=== PATIENT | female | born 1995 | race American Indian/Alaskan Native ===

== ENCOUNTER 2016-11-29 14:59 | Emergency (ER) | payer SELFPAY ==
[2016-11-29 16:03] LABS: Anion Gap 19 mmol/L; BUN/Creatinine Ratio 13.33; Blood Urea Nitrogen 8 mg/dL (7-17); Calcium 9.1 mg/dL (8.4-10.2); Carbon Dioxide 23 mmol/L (22-30); Chloride 100.1 mmol/L (98-107); Glucose 90 mg/dL (65-100); Potassium 3.7 mmol/L (3.6-5.0); Sodium 138 mmol/L (137-145)
[2016-11-29 16:06] LABS: Hematocrit 30.9 % (30.3-42.9); Hemoglobin 9.4 gm/dl (10.1-14.3); Mean Corpuscular HGB Conc 31 % (30-34); Mean Corpuscular Volume 74 fl (79-97); Platelet Count 325 K/mm3 (140-440); Red Cell Distribution Width 16.6 % (13.2-15.2); White Blood Count 4.6 K/mm3 (4.5-11.0)
[2016-11-29 16:12] LABS: Mean Corpuscular Hemoglobin 22 pg (28-32)
[2016-11-29 17:44] LABS: Bacteria,Urine 1+ /HPF (Negative); Bilirubin,Urine NEG (Negative); Blood,Urine NEG (Negative); Ketones,Urine NEG (Negative); Leukocyte Esterase,Urine SM (Negative); Mucus,Urine 3+ /HPF; Nitrite,Urine POS (Negative); Protein,Urine <15 mg/dL mg/dL (Negative); Urobilinogen,Urine < 2.0 mg/dL (<2.0)
[2016-11-30] MEDS ORDERED: MOTRIN PO ONE (03:49)
--- NOTE | 2016-11-30 03:50 | Emergency Department Report ---
ED General Adult HPI - General Chief complaint: Abdominal Pain Stated complaint: Flank Pain Time Seen by Provider: 11/30/16 03:14 Source: patient, RN notes reviewed Mode of arrival: Ambulatory Limitations: No Limitations - History of Present Illness Initial comments: This is a 21-year-old female. She is previously unknown to me. The patient presents to the ER complaining of bilateral lower quadrant pain that radiates to her back for 2 months. The pain radiates up to her neck. It also radiates up to her chest. There is no leg pain. There is no leg swelling. No recent trips greater than 4 hours. No recent hospital admissions. Patient also describes some dysuria. She also describes vaginal discharge. There is no headache, neck pain, diaphoresis. Patient denies fevers. The pain has no exacerbating or relieving factors. -: Gradual, week(s), month(s) Location: chest, abdomen, pelvis Radiation: back, flank Quality: aching Consistency: intermittent Improves with: none Worsens with: none Associated Symptoms: chest pain. denies: confusion, cough, diaphoresis, fever/ chills, headaches, loss of appetite, malaise, nausea/vomiting, shortness of breath, syncope, weakness - Related Data Previous Rx's Medication Instructions Recorded Last Taken Type Pnv with Ca,No.72/Iron/FA 1 each PO DAILY #30 tablet 11/29/14 06/13/16 Rx [ Vitamin with Low Iron] Nitrofurantoin Isabela/M-Cryst 100 mg PO Q12HR #20 capsule 11/21/15 Unknown Rx [Macrobid CAP] Ibuprofen [Motrin] 600 mg PO Q8H PRN #30 tablet 11/30/16 Unknown Rx Nitrofurantoin Isabela/M-Cryst 100 mg PO Q12HR #14 capsule 11/30/16 Unknown Rx [Macrobid CAP] Allergies Allergy/AdvReac Type Severity Reaction Status Date / Time No Known Allergies Allergy Verified 07/30/13 17:24 ED Review of Systems ROS: Stated complaint: Flank Pain Other details as noted in HPI Constitutional: denies: diaphoresis, fever, malaise ENT: denies: epistaxis Respiratory: denies: shortness of breath Cardiovascular: chest pain Gastrointestinal: abdominal pain Genitourinary: as per HPI, dysuria, discharge Musculoskeletal: back pain Skin: denies: lesions Neurological: weakness Psychiatric: as per HPI ED Past Medical Hx - Past Medical History Hx Hypertension: No Hx Congestive Heart Failure: No Hx Diabetes: No Hx Deep Vein Thrombosis: No Hx Renal Disease: No Hx Sickle Cell Disease: No Hx Seizures: No Hx Asthma: Yes Hx COPD: No Hx HIV: No - Social History Smoking Status: Never Smoker Substance Use Type: None - Medications Home Medications: Home Medications Medication Instructions Recorded Confirmed Last Taken Type Pnv with Ca,No.72/Iron/FA 1 each PO DAILY #30 tablet 11/29/14 06/30/16 06/13/16 Rx [ Vitamin with Low Iron] Nitrofurantoin Isabela/M-Cryst 100 mg PO Q12HR #20 capsule 11/21/15 06/30/16 Unknown Rx [Macrobid CAP] Ibuprofen [Motrin] 600 mg PO Q8H PRN #30 tablet 11/30/16 Unknown Rx Nitrofurantoin Isabela/M-Cryst 100 mg PO Q12HR #14 capsule 11/30/16 Unknown Rx [Macrobid CAP] ED Physical Exam - General Limitations: No Limitations General appearance: alert, in no apparent distress - Head Head exam: Present: atraumatic, normocephalic - Eye Eye exam: Present: normal appearance, EOMI. Absent: nystagmus - ENT ENT exam: Present: normal exam, normal orophraynx, mucous membranes moist, normal external ear exam - Neck Neck exam: Present: normal inspection, full ROM. Absent: tenderness, meningismus - Respiratory Respiratory exam: Present: normal lung sounds bilaterally. Absent: respiratory distress, wheezes, rales, rhonchi, stridor, chest wall tenderness, accessory muscle use, decreased breath sounds, prolonged expiratory - Cardiovascular Cardiovascular Exam: Present: regular rate, normal rhythm, normal heart sounds. Absent: bradycardia, tachycardia, irregular rhythm, systolic murmur, diastolic murmur, rubs, gallop - GI/Abdominal GI/Abdominal exam: Present: soft, normal bowel sounds. Absent: distended, tenderness, guarding, rebound, rigid, pulsatile mass - External exam: Present: normal external exam Speculum exam: Present: normal speculum exam Bi-manual exam: Present: normal bi-manual exam, other (escorted by DANIELLA PALMA). Absent: cervical motion tendernes, adnexal tenderness, adnexal mass - Extremities Exam Extremities exam: Present: normal inspection, full ROM, normal capillary refill. Absent: tenderness, pedal edema, joint swelling, calf tenderness - Back Exam Back exam: Present: normal inspection, full ROM. Absent: tenderness, CVA tenderness (R), CVA tenderness (L), muscle spasm, paraspinal tenderness, vertebral tenderness - Neurological Exam Neurological exam: Present: alert, oriented X3, normal gait, other (Extraocular movements intact. Tongue midline. No facial droop. Facial sensation intact to light touch in the V1, V2, V3 distribution bilaterally. 5 and 5 strength in 4 extremities.. Sensation is intact to light touch in 4 extremities.). Absent : motor sensory deficit - Psychiatric Psychiatric exam: Present: normal affect, normal mood - Skin Skin exam: Present: warm, dry, intact, normal color. Absent: rash ED Course Vital Signs 11/29/16 11/30/16 15:17 04:32 Temperature 98.3 F Pulse Rate 81 74 Respiratory 18 17 Rate Blood Pressure 118/72 Blood Pressure 124/80 [Left] O2 Sat by Pulse 100 99 Oximetry - Reevaluation(s) Reevaluation #1: 11/30/16 04:10 Differential diagnosis: Vaginitis, musculoskeletal pain, pelvic inflammatory disease, urinary tract infection, pneumonia, costochondritis Assessment and plan: 21-year-old female with multiple complaints. She is afebrile with reassuring vital signs. Low risk by MCKAYLA score, low risk by heart score, no pulmonary embolus or DVT risk factors, perc negative, low risk by well's criteria. EKG is morphologically unremarkable. Symptoms have been present for months and weeks. Patient with some nonspecific urinary symptoms and vaginitis. Urinalysis is noted to be nitrite positive. Gynecologic examination is pending. Patient is given pain medication. Abdomen is soft and benign, with no rebound, guarding or peritoneal signs. Based on her history and physical, I don't think the patient requires emergent imaging at this time. 11/30/16 04:10 Reevaluation #2: 11/30/16 04:58 Gynecologic examination is benign. EKG benign. Repeat physical exam unremarkable. Patient will be discharged with ibuprofen and Macrobid. Given benign pelvic examination, clinically doubt PID ED Medical Decision Making - Lab Data Result diagrams: 11/29/16 15:33 06/05/17 15:33 Vital Signs 11/29/16 15:17 Temperature 98.3 F Pulse Rate 81 Respiratory 18 Rate Blood Pressure 118/72 O2 Sat by Pulse 100 Oximetry Lab Results 11/29/16 11/29/16 11/29/16 Range/Units 15:33 15:33 17:02 WBC 4.6 (4.5-11.0) K/mm3 RBC 4.20 (3.65-5.03) M/mm3 Hgb 9.4 L (10.1-14.3) gm/dl Hct 30.9 (30.3-42.9) % MCV 74 L (79-97) fl MCH 22 L (28-32) pg MCHC 31 (30-34) % RDW 16.6 H (13.2-15.2) % Plt Count 325 (140-440) K/mm3 Sodium 138 (137-145) mmol/L Potassium 3.7 (3.6-5.0) mmol/L Chloride 100.1 (98-107) mmol/L Carbon Dioxide 23 (22-30) mmol/L Anion Gap 19 mmol/L BUN 8 (7-17) mg/dL Creatinine 0.6 L (0.7-1.2) mg/dL Estimated GFR > 60 ml/min BUN/Creatinine Ratio 13.33 % Glucose 90 (65-100) mg/dL Calcium 9.1 (8.4-10.2) mg/dL Urine Color Yellow (Yellow) Urine Turbidity Clear (Clear) Urine pH 6.0 (5.0-7.0) Ur Specific [place] 1.018 (1.003-1.030) Urine Protein <15 mg/dl (Negative) mg/dL Urine Glucose (UA) Neg (Negative) mg/dL Urine Ketones Neg (Negative) mg/dL Urine Blood Neg (Negative) Urine Nitrite Pos (Negative) Urine Bilirubin Neg (Negative) Urine Urobilinogen < 2.0 (<2.0) mg/dL Ur Leukocyte Esterase Sm (Negative) Urine WBC (Auto) 1.0 (0.0-6.0) /HPF Urine RBC (Auto) 2.0 (0.0-6.0) /HPF U Epithel Cells (Auto) 2.0 (0-13.0) /HPF Urine Bacteria (Auto) 1+ (Negative) /HPF Urine Mucus 3+ /HPF Urine HCG, Qual Negative (Negative) - EKG Data -: EKG Interpreted by Me EKG shows normal: sinus rhythm, axis, intervals, QRS complexes, ST-T waves - EKG Data When compared to previous EKG there are: previous EKG unavailable - Radiology Data Radiology results: image reviewed interpreted by me: X-ray of the chest is unremarkable. Critical care attestation.: If time is entered above; I have spent that time in minutes in the direct care of this critically ill patient, excluding procedure time. ED Disposition Clinical Impression: Pelvic pain Disposition: DISCHARGED TO HOME OR SELFCARE Is pt being admited?: No Does the pt Need Aspirin: No Condition: Stable Instructions: Urinary Tract Infection in Women (ED) Additional Instructions: Cultures were sent today. Results will be available next 3-5 days. Have a primary care doctor contact the medical records department to obtain culture results. Take the antibiotics, pain medication as directed. Follow-up with the primary care physician within the next 7-10 days. Return to the ER right away with new pain, worsened pain, migration of pain, fevers, chills, shortness of breath, intractable nausea or vomiting, confusion, inability to tolerate liquids. Referrals: PRIMARY CARE, [Primary Care Provider] - 3-5 Days EDITH GOETZ MD [Staff Physician] - 3-5 Days [facility] [Provider Group] - 3-5 Days [facility] [Provider Group] - 3-5 Days
[2016-11-30 04:32] VITALS: BP 124/80
--- NOTE | 2016-11-30 07:06 | XRay Report ---
Single view chest: History: Chest pain. Findings: Normal cardiomediastinal silhouette. Trachea is midline. No consolidation, pneumothorax or pleural effusion. Impression: No acute cardiopulmonary findings.
== END 2016-11-30 05:45 | disposition home or self-care (01) ==
LOC: ED 14:59
DX: R10.2 Pelvic and perineal pain (principal)
CPT/HCPCS: 36415; 71010; 80048; 81001; 81025; 85027; 87076; 87086; 87186; 87210; 87591; 93005; 93010; 99284

== ENCOUNTER 2017-07-18 16:03 | Emergency (ER) | payer SELFPAY ==
[2017-07-18 17:11] VITALS: BP 112/68
[2017-07-18 17:51] LABS: Basophils % (Auto) 0.5 % (0.0-1.8); Eosinophils % (Auto) 0.4 % (0.0-4.3); Hematocrit 28.3 % (30.3-42.9); Hemoglobin 8.9 gm/dl (10.1-14.3); Lymphocytes # (Auto) 2.1 K/mm3 (1.2-5.4); Lymphocytes % (Auto) 22.2 % (13.4-35.0); Mean Corpuscular HGB Conc 31 % (30-34); Mean Corpuscular Volume 73 fl (79-97); Monocytes # (Auto) 0.8 K/mm3 (0.0-0.8); Monocytes % (Auto) 8.6 % (0.0-7.3); Platelet Count 402 K/mm3 (140-440); Red Blood Count 3.91 M/mm3 (3.65-5.03); Red Cell Distribution Width 17.4 % (13.2-15.2)
[2017-07-18 17:54] LABS: Mean Corpuscular Hemoglobin 23 pg (28-32)
[2017-07-18 18:20] LABS: Alanine Aminotransferase 8 units/L (7-56); Albumin 3.9 g/dL (3.9-5); BUN/Creatinine Ratio 15; Blood Urea Nitrogen 6 mg/dL (7-17); Hemolysis Index 0
[2017-07-18 18:44] LABS: Bilirubin,Urine NEG (Negative); Blood,Urine NEG (Negative); Color,Urine Yellow (Yellow); Mucus,Urine 3+ /HPF; Nitrite,Urine NEG (Negative); Protein,Urine <15 mg/dL mg/dL (Negative)
[2017-07-18 18:46] LABS: HCG Qualitative,Urine Positive (Negative)
== END 2017-07-19 01:44 | disposition left against medical advice (07) ==
LOC: ED 16:03
DX: R09.81 Nasal congestion (principal); Z53.21 Procedure and treatment not carried out due to patient leaving prior to being seen by health care provider
CPT/HCPCS: 36415; 80053; 81001; 81025; 85025

== ENCOUNTER 2017-08-23 21:22 | Outpatient (CLI) | payer SELFPAY ==
[2017-08-23 22:58] LABS: Hemoglobin 8.8 gm/dl (10.1-14.3); Mean Corpuscular HGB Conc 31 % (30-34); Mean Corpuscular Volume 72 fl (79-97); Platelet Count 386 K/mm3 (140-440); Red Blood Count 3.92 M/mm3 (3.65-5.03); Red Cell Distribution Width 16.3 % (13.2-15.2)
[2017-08-23 23:01] LABS: Mean Corpuscular Hemoglobin 23 pg (28-32)
[2017-08-23 23:17] LABS: Alanine Aminotransferase 9 units/L (7-56); Albumin 3.9 g/dL (3.9-5); BUN/Creatinine Ratio 20; Blood Urea Nitrogen 8 mg/dL (7-17); Hemolysis Index 2
[2017-08-24 00:46] VITALS: BP 116/63
[2017-08-24] MEDS ORDERED: LACTATED RINGERS 500 ML IV SCH (01:00)
--- NOTE | 2017-08-24 01:01 | Ultrasound Report ---
FINAL REPORT PROCEDURE: US OB > = 14 WEEKS FETUS TECHNIQUE: Real-time transabdominal sonography of the uterus, placenta, amniotic fluid, adnexa, and fetus was performed with image documentation. Measurements were obtained to determine age/size. M-mode Doppler was used to document heartbeat. CPT 56853 HISTORY: > 20WEEKS WITH PELVIC PAIN AND VAGINAL DRAINAGE COMPARISON: No prior studies are available for comparison. FINDINGS: ADDITIONAL GESTATION: None. GENERAL: IUP: Single living intrauterine . Position: Cephalic Placental position: Anterior, without previa. Amniotic fluid volume: Normal. MATERNAL: Uterus: Within normal limits. Cervical length: 3.2 cm. Internal Os: Closed. FETUS: Heart rate and rhythm: 166 beats per minute anatomic survey: Normal. Limited evaluation of the spine and the cord insertion. MEASUREMENTS: BPD: 6.64 centimeters correspond to 26 weeks and 5 days HC: 24.4 centimeters correspond to 26 weeks and 3 days AC: 19.8 centimeters correspond to 24 weeks and 3 days FL: 4.75 centimeters corresponding to 25 weeks and 6 days Mean Gestational Age (composite criteria): 25 weeks and 6 days Ratio biometry: Normal. Estimated Weight: 792 grams. Interval growth: Appropriate. Estimated Due Date (earliest scan): 11/30/2017 IMPRESSION: Single intrauterine gestation at 25 weeks and 6 days. Estimated due date: 11/30/2017. Normal survey with appropriate growth.
== END 2017-08-24 01:45 | disposition home or self-care (01) ==
LOC: TRG 08-24 00:22
PROVIDERS: ATTEND Obstetrics & Gynecology
DX: O26.892 Other specified pregnancy related conditions, second trimester (principal); R10.2 Pelvic and perineal pain; Z3A.26 26 weeks gestation of pregnancy
CPT/HCPCS: 36415; 76805; 80053; 84702; 85027; 86900; 86901

== ENCOUNTER 2017-10-15 19:08 | Outpatient (CLI) | payer MEDICAID ==
[2017-10-15 19:57] LABS: Bilirubin,Urine NEG (Negative); Blood,Urine NEG (Negative); Color,Urine Yellow (Yellow); Mucus,Urine FEW /HPF; Protein,Urine <15 mg/dL mg/dL (Negative); WBC,Urine < 1.0 /HPF (0.0-6.0)
[2017-10-15] MEDS ORDERED: LACTATED RINGERS 1,000 ML IV ONE (20:00)
[2017-10-15 20:34] VITALS: BP 100/56
== END 2017-10-15 22:29 | disposition home or self-care (01) ==
LOC: TRG 19:08 → LD 19:10 → TRG 22:29
PROVIDERS: ATTEND Obstetrics & Gynecology
DX: O47.03 False labor before 37 completed weeks of gestation, third trimester (principal); Z3A.33 33 weeks gestation of pregnancy
CPT/HCPCS: 59025; 81001; 96360; J7120

== ENCOUNTER 2017-10-30 11:02 | Outpatient (CLI) | payer MEDICAID ==
[2017-10-30 11:23] VITALS: BP 119/68
== END 2017-10-30 12:35 | disposition home or self-care (01) ==
LOC: TRG 11:02
PROVIDERS: ATTEND Obstetrics & Gynecology
DX: O47.03 False labor before 37 completed weeks of gestation, third trimester (principal); Z3A.35 35 weeks gestation of pregnancy

== ENCOUNTER 2017-11-04 16:05 | Outpatient (CLI) | payer MEDICAID ==
[2017-11-04 17:20] VITALS: BP 117/68
== END 2017-11-04 18:30 | disposition home or self-care (01) ==
LOC: TRG 16:05
PROVIDERS: ATTEND Obstetrics & Gynecology
DX: O62.9 Abnormality of forces of labor, unspecified (principal); Z3A.36 36 weeks gestation of pregnancy
CPT/HCPCS: 59025

== ENCOUNTER 2017-11-08 00:47 | Inpatient (IN) | payer MEDICAID ==
[2017-11-08] MEDS ORDERED: LACTATED RINGERS 1,000 ML ONE (01:46)
[2017-11-08] MEDS ORDERED: PITOCin/NS 20 UNIT/1000ML DRIP 20,000 MILLIUNITS/1,000 ML BAG IV ONE (02:09)
[2017-11-08] MEDS ORDERED: REGLAN ONE (02:09)
[2017-11-08] MEDS ORDERED: PEPCID IV ONE (02:09)
[2017-11-08] MEDS ORDERED: BICITRA ONE (02:09)
[2017-11-08] MEDS ORDERED: ANCEF/STERILE WATER 2 GM/20 ML 2 GM/20 ML SYRINGE IV ONE (02:09)
[2017-11-08] MEDS ORDERED: WATER FOR IRRIG STERILE IR ONE (02:20)
[2017-11-08] MEDS ORDERED: NACL 0.9% IR ONE (02:20)
[2017-11-08] MEDS ORDERED: NEO SYNEPHRINE/NS Syringe(OR USE) IV ONE ×3 (02:26→03:10)
[2017-11-08] MEDS ORDERED: DIPRIVAN 10 MG/ML IV ONE ×2 (02:26→02:46)
[2017-11-08] MEDS ORDERED: QUELICIN ONE (02:27)
[2017-11-08 02:30] LABS: Hematocrit 21.9 % (30.3-42.9); Hemoglobin 6.6 gm/dl (10.1-14.3); Mean Corpuscular HGB Conc 30 % (30-34); Platelet Count 307 K/mm3 (140-440); Red Blood Count 3.35 M/mm3 (3.65-5.03); Red Cell Distribution Width 16.8 % (13.2-15.2)
[2017-11-08 02:32] LABS: Mean Corpuscular Hemoglobin 20 pg (28-32); Mean Corpuscular Volume 66 fl (79-97)
[2017-11-08] MEDS ORDERED: DILAUDID ONE (02:44)
[2017-11-08] MEDS ORDERED: ZOFRAN ONE (03:24)
--- NOTE | 2017-11-08 03:40 | Anesthesia Consultation ---
Anesthesia Consult and Med Hx Date of service: 11/08/17 - Airway Anesthetic Teeth Evaluation: Good ROM Head & Neck: Adequate Mental/Hyoid Distance: Adequate Mallampati Class: Class II Intubation Access Assessment: Probably Good - Pulmonary Exam CTA: Yes - Cardiac Exam Cardiac Exam: RRR - Pre-Operative Health Status ASA Pre-Surgery Classification: ASA2, Emergency Proposed Anesthetic Plan: General - Pulmonary Hx Smoking: No Hx Asthma: No COPD: No Hx Pneumonia: No - Cardiovascular System Hx Hypertension: No - Central Nervous System Hx Seizures: No Hx Psychiatric Problems: No - Endocrine Hx Renal Disease: No Hx End Stage Renal Disease: No Hx Hypothyroidism: No Hx Hyperthyroidism: No - Hematic Hx Anemia: No Hx Sickle Cell Disease: No - Other Systems Hx Alcohol Use: No
--- NOTE | 2017-11-08 03:40 | Anesthesia Day of Surgery ---
Anesthesia Day of Surgery - Day of Surgery Patient Examined: Yes Patient H&P Reviewed: Yes Patient is NPO: No
[2017-11-08] MEDS ORDERED: PHENERGAN PR PRN (03:41)
[2017-11-08] MEDS ORDERED: NARCAN 0.4 MG/1 ML IV PRN ×3 (03:41→05:52)
[2017-11-08] MEDS ORDERED: PHENERGAN PO PRN (03:41)
--- NOTE | 2017-11-08 03:41 | Post Anesthesia Evaluation ---
- Post Anesthesia Evaluation Patient Participated: Yes Airway Patent: Yes Stable Respiratory Function: Yes Nausea/Vomiting: No Temp > 96.8F: Yes Pain Manageable: Yes Adequeate Hydration: Yes Anesthesia Complications: No Block Receding Appropriately: Not Applicable Patient on Ventilator: No
[2017-11-08] MEDS ORDERED: TORADOL IV ONE (03:42)
[2017-11-08] MEDS ORDERED: DILAUDID IV PRN (03:42)
--- NOTE | 2017-11-08 03:48 | History and Physical Report ---
History of Present Illness Date of examination: 11/08/17 Date of admission: 11/08/17 01:47 Chief complaint: contractions, leakage of fluid History of present illness: Pt is a 22 year old -[place]aj[place] female PATRICIA 11/26/17 at 37w3d who presents with contractions and leakage of fluid. While in triage pt began to have large repetitive variable decelerations down to the 60s with slow return to baseline. Her cervix was 2-3 cm dilated. She denies vaginal bleeding. She has had care at [facility] since 29 wks complicated by late entry to care, trichomonas, gonorrhea and chlamydia with negative test of cure, genital herpes and anemia on iron thrice daily. She is GBS negative. Past History Past Medical History: asthma Past Surgical History: no surgical history [employer] History: chlamydia (negative test of cure ), gonorrhea (negative test of cure ), herpes, trichomonas (negative test of cure ) Family/Genetic History: none Social history: no significant social history - Obstetrical History Expected Date of Delivery: 11/26/17 Actual Gestation: 37 Week(s) 3 Day(s) : 4 Para: 2 Hx # Term Pregnancies: 2 Number of Pregnancies: 0 Spontaneous Abortions: 1 Induced : 0 Number of Living Children: 2 Medications and Allergies Allergies Allergy/AdvReac Type Severity Reaction Status Date / Time No Known Allergies Allergy Verified 07/30/13 17:24 Home Medications Medication Instructions Recorded Confirmed Last Taken Type No Known Home Medications [No 10/15/17 10/15/17 Unknown History Reported Home Medications] Review of Systems All systems: negative - Vital Signs Vital signs: Vital Signs Temp Pulse Resp BP 98.3 F 114 H 18 129/81 11/08/17 01:30 11/08/17 01:30 11/08/17 01:30 11/08/17 01:30 Temp Pulse Resp BP Pulse Ox 98.3 F 110 H 18 129/81 100 11/08/17 01:30 11/08/17 02:13 11/08/17 01:30 11/08/17 01:30 11/08/17 02:13 - Physical Exam Breasts: Positive: deferred Abdomen: Positive: soft Uterus: Positive: enlarged (gravid ) - Obstetrical FHR: category 2 Uterine Contraction Monitor Mode: External Cervical Dilatation: 2.5 Uterine Contraction Pattern: Irregular Uterine Tone Measurement Phase: Resting Uterine Contraction Intensity: Moderate Results Result Diagrams: 11/08/17 02:00 Abnormal lab results 11/08/17 11/08/17 11/08/17 Range/Units 02:00 03:20 03:23 WBC 12.4 H (4.5-11.0) K/mm3 RBC 3.35 L (3.65-5.03) M/mm3 Hgb 6.6 L (10.1-14.3) gm/dl Hct 21.9 L (30.3-42.9) % MCV 66 L (79-97) fl MCH 20 L (28-32) pg RDW 16.8 H (13.2-15.2) % POC ABG pH 7.226 L (7.35-7.45) POC ABG pCO2 29.5 L 47.2 H (35-45) POC ABG pO2 176 H 47 L (80-105) All other labs normal. Assessment and Plan A: IUP at 37w3d Category II tracing remote from delivery Insufficient care Asthma GBS negative P: Proceed with emergent primary section.
[2017-11-08] MEDS ORDERED: ZOFRAN IV PRN ×2 (03:56→05:52)
[2017-11-08] MEDS ORDERED: BENADRYL IV PRN (03:56)
--- NOTE | 2017-11-08 03:57 | Operative Report ---
Operative Report Operative Report: Date of procedure: November 08, 2017 Preoperative diagnosis: 1) IUP at 37w3d 2) PROM 3) Bradycardia 4) Severe Anemia Postoperative diagnosis: Same Procedure: Emergent primary low transverse section Surgeon: Esther Rivera M.D. Anesthesia: GETA Findings: 1) Viable female , Apgars 1, 6 and 9, weight 2721g in vertex presentation. Terminal meconium 2) Normal-appearing uterus, ovaries and tubes Estimated blood loss: 700 mL Drains: Thomas to gravity Specimens: Placenta to pathology Complications: None. Counts correct x 3 Disposition: Stable to PACU Indication for procedure: Pt is a 22 year old -[place] female at 37w3d who presents with rupture of membranes and painful contractions at 2 cm dilation. Upon arrival to the unit, the FHTs evidenced deep variable decels to the 60s and bradycardia for 4 minutes remote from delivery. The decision was made to proceed with emergent section. Operation in detail: After the risks, benefits, alternatives and complications were explained to the patient she gave informed consent for the procedure. She was subsequently taken to the operating room. An attempt was made to obtain spinal anesthesia which was unsuccessful. She was subsequently placed in the dorsal supine position with leftward tilt and prepped and draped in a normal sterile fashion. heart tones were noted to prior to incision with audible deceleration. A timeout was performed. General anesthesia was then induced and noted to be adequate. A Pfannenstiel skin incision was made with the knife and carried down to the layer of the fascia with the Bovie. The fascia was incised in the midline and the fascial incision was extended bilaterally with the Bovie. The fascial incision was stretched. The rectus muscles were then in the midline. The peritoneum was then entered bluntly and stretched. The bladder blade was placed. The vesicouterine peritoneum was grasped with smooth pickups, incised with Metzenbaum scissors and extended bilaterally. The bladder flap was then created digitally and the bladder blade was replaced. A transverse incision was made in the lower uterine segment with a knife and extended bilaterally with the bandage scissors. The head was delivered without difficulty followed by shoulders and body. was bulb suctioned at delivery. The cord was clamped and cut and the was handed to NICU staff in attendance. Cord blood was collected. A cord segment was collected. The uterus was then exteriorized and the placenta was then delivered manually. The uterus was then cleared of all clots and debris. The hysterotomy was then reapproximated with 0 Vicryl in a running locked fashion. A second layer of the same suture was used in imbricating fashion. The hysterotomy was inspected and hemostasis was noted. The gutters were irrigated and cleared of all clots and debris. The hysterotomy was again inspected and noted to be hemostatic. Surgicel was placed over the hysterotomy. The peritoneum was reapproximated with 2-0 Vicryl in a running fashion incorporating the rectus muscles. Surgicel was placed over the pyramidalis muscles for added hemostasis. The fascia was reapproximated with 0 Vicryl in a running fashion. The subcutaneous tissue was reapproximated with 3-0 Vicryl. The skin was reapproximated with 4-0 Vicryl in a subcuticular fashion. The incision was then covered with steri strips and a pressure dressing. The procedure was then ended. The patient tolerated the procedure well and was taken to the PACU in stable condition. All instrument, lap, and needle counts were correct 3.
--- NOTE | 2017-11-08 03:57 | Procedure Note ---
OB Delivery Note - Delivery Date of Delivery: 11/08/17 Surgeon: JEN SEPULVEDA Estimated blood loss: other (700 mL) - Section Preop diagnosis: nonreassuring FHR tracing Postop diagnosis: same section procedure: section, primary low transverse Disposition: PACU Complications: none Narrative: Please see operative report. - A at 1 minute: 1 at 5 minutes: 6 (Apgars 1,6, 9; weight 2721g) Infant Gender: Female
[2017-11-08] MEDS ORDERED: MORPHINE PCA 30MG/30ML IV SCH (04:00)
[2017-11-08] MEDS ORDERED: SODIUM CHLORIDE FLUSH SYRINGE 10 ML IV PRN ×2 (04:00→05:52)
[2017-11-08] MEDS ORDERED: LANSINOH TP PRN (05:52)
[2017-11-08] MEDS ORDERED: D5LR 1,000 ML IV SCH (05:52)
[2017-11-08] MEDS ORDERED: PITOCin/NS 20 UNIT/1000ML DRIP 20 UNITS/1,000 ML BAG IV SCH (05:52)
[2017-11-08] MEDS ORDERED: ANCEF/NS 1 GM/50 ML 1 GM/50 ML BAG IV SCH (05:52)
[2017-11-08] MEDS ORDERED: MILK OF MAGNESIA PO PRN (05:52)
[2017-11-08] MEDS ORDERED: TUCKS PAD TP PRN (05:52)
[2017-11-08] MEDS: ceFAZolin 1 GM in NACL 0.9% 20 ML IV SCH ×2 (09:54→17:44)
[2017-11-08] MEDS ORDERED: FEOSOL PO SCH (10:00)
[2017-11-08] MEDS: TORADOL IV PRN ×3 (10:42→23:25)
[2017-11-08] MEDS: ZOFRAN IV PRN (15:45)
[2017-11-08 18:01] LABS: Hematocrit 21.1 % (30.3-42.9); Hemoglobin 6.3 gm/dl (10.1-14.3)
[2017-11-08] MEDS ORDERED: NACL 0.9% 500 ML 500 ML IV ONE ×2 (18:21→18:36)
[2017-11-08] MEDS ORDERED: BENADRYL PO SCH (18:27)
[2017-11-08] MEDS ORDERED: TYLENOL PO SCH (18:28)
--- NOTE | 2017-11-08 18:55 | Event Note ---
Date: 11/08/17 Pt with symptomatic anemia (dizziness while ambulating). Plan to transfuse two units PRBCs with H/H four hours after transfusion of the second unit.
[2017-11-08] MEDS: PERCOCET 5/325 PO PRN (19:45)
[2017-11-08] MEDS ORDERED: COLACE PO PRN (22:05)
--- NOTE | 2017-11-08 22:08 | Event Note ---
Date: 11/08/17 Late Entry. Contacted by RN that patient has refused blood transfusion. Begin iron supplementation three times daily with stool softner as needed. Continue to monitor clinically.
[2017-11-09] MEDS: PERCOCET 5/325 PO PRN ×2 (02:58→12:19)
[2017-11-09] MEDS ORDERED: M-M-R II VACCINE SUB-Q ONE (04:03)
[2017-11-09] MEDS: TORADOL IV PRN (05:21)
[2017-11-09] MEDS ORDERED: BOOSTRIX IM ONE (06:00)
--- NOTE | 2017-11-09 08:48 | Progress Note ---
Assessment and Plan A/P POD2 s/p primary csec VSS anemia persists ( chronic 6.6 to 6.3 -patient finally agrees to blood transfusion will give 2 U reassess after blood transfusion has some questions for primary surgeon continue routine postop orders baby in [place] Subjective - Subjective Date of service: 11/09/17 Principal diagnosis: s/p primary csec Patient reports: appetite normal, voiding normally, pain well controlled [place]: in NICU Objective - Vital Signs Latest vital signs: Vital Signs Temp Pulse Resp BP BP Pulse Ox 11/09/17 04:00 98.7 F 66 16 117/78 11/09/17 00:00 98.6 F 87 18 102/64 11/08/17 19:45 98.7 F 66 18 113/65 11/08/17 16:43 98.1 F 113 H 20 111/65 99 11/08/17 16:00 18 11/08/17 11:36 98.5 F 101 H 20 111/59 97 11/08/17 10:00 18 Intake and Output 11/08/17 11/09/17 11/09/17 23:59 07:59 15:59 Intake Total 560 300 Output Total 900 500 Balance -340 -200 Intake: Oral 260 Intake, Free Water 300 300 Output: Urine 900 500 Void 900 500 Other: Total, Intake Amount 200 Total, Output Amount 300 200 # Voids Void 1 1 - Exam Breasts: Present: normal Cardiovascular: Present: Regular rate, Normal S1 Lungs: Present: Clear to auscultation, Normal air movement Abdomen: Present: normal appearance, soft, normal bowel sounds. Absent: distention, tenderness, guarding Vulva: both: normal Uterus: Present: normal, firm, fundal height below umbilicus. Absent: bogginess , tenderness Extremities: Present: normal Deep Tendon Reflex Grade: Normal +2 Incision: Present: normal, dressed - Labs Labs: Abnormal lab results 11/08/17 11/08/17 Range/Units 02:00 17:39 Hgb 6.3 L (10.1-14.3) gm/dl Hct 21.1 L (30.3-42.9) % Crossmatch See Detail
[2017-11-09] MEDS: FEOSOL PO SCH (09:19)
--- NOTE | 2017-11-09 12:52 | Event Note ---
Date: 11/09/17 I met with pt and a male present in her room at the time, along with her nurse today Arpita. Her male slitter processed film asked why the patient received "so much anesthesia." They were informed that the patient received general anesthesia per protocol. All questions from patient and her male slitter processed film answered and the pt expressed understanding. Plan to return this evening for further discussion with the remainder of the family in conjunction with NICU staff.
--- NOTE | 2017-11-09 17:48 | Event Note ---
Date: 11/09/17 Pt expressed desire for provider to speak with her grandmother who indicated that she would be at the hospital around 4 pm today. At 530 pm, she was still not at the hospital.
--- NOTE | 2017-11-09 18:17 | Event Note ---
Date: 11/09/[address] Rivera and Kay, NICU charge nurse and given opportunity to ask any additional questions. All questions answered. No additional family present at this time.
[2017-11-09] MEDS ORDERED: NACL 0.9% 500 ML 500 ML ONE ×2 (18:53→22:46)
[2017-11-09] MEDS ORDERED: GARAMYCIN 0 MG in NACL 0.9% 100 ML IV SCH (21:30)
[2017-11-09] MEDS ORDERED: TYLENOL ONE (21:31)
--- NOTE | 2017-11-09 21:51 | Event Note ---
Date: 11/09/17 I was contacted by Nurse Clementina indicated that patient had a temp of 103 down to 101 prior to blood. cxr, urine culture and blood cultures x2 ordered. I also ordered ampicillin, gentamycin and clindamycin. close observation of VS.
[2017-11-09] MEDS ORDERED: GARAMYCIN/NS 100 MG/100 ML 100 MG/100 ML BAG IV SCH (22:00)
[2017-11-09] MEDS ORDERED: CLEOCIN 900 MG/50 mL 900 MG/50 ML BAG IV SCH (22:00)
--- NOTE | 2017-11-09 23:02 | XRay Report ---
FINAL REPORT PROCEDURE: XR CHEST 1V AP TECHNIQUE: Chest radiograph anteroposterior view. CPT 61491 HISTORY: sepsis rule out COMPARISON: No prior studies are available for comparison. FINDINGS: Heart: Normal size. Mediastinum/Vessels: Normal. Lungs/Pleural space: There is patchy alveolar density in the left perihilar region extending into the left lower lobe suspicious for pneumonia. Minimal left effusion appears to be present. There also may be minimal right effusion. Right lung is otherwise clear.. Bony thorax: No acute osseous abnormality. Life support devices: None. IMPRESSION: Increased left perihilar density extending into the left lower lobe suspicious for pneumonia given the patient's clinical presentation. Possible minimal bilateral pleural effusions..
[2017-11-10] MEDS: POLYCILLIN/NS 2 GM/100 ML 2 GM/100 ML BAG IV SCH ×2 (00:08→04:19)
[2017-11-10] MEDS: MOTRIN PO PRN ×2 (00:17→22:53)
[2017-11-10] MEDS: PERCOCET 5/325 PO PRN ×2 (01:34→08:09)
[2017-11-10] MEDS ORDERED: LACTATED RINGERS 1,000 ML IV SCH (08:00)
[2017-11-10] MEDS: FEOSOL PO SCH ×2 (08:08→16:09)
[2017-11-10] MEDS: MYLICON PO PRN (08:08)
--- NOTE | 2017-11-10 08:08 | Progress Note ---
Assessment and Plan A/P POD3 s/p primary csec Esteban temp 103 Initially started triples, after cxr source likely pneumo left lower quadrant spoke with Dr. Mccullough of ID and requested change Abx to unasyn and azithro s/p blood transfusion 2U await post transfusion ordered special testing legionella and sputum culture and Dr. Mccullough to see patient tomorrow continue present mgt Subjective - Subjective Date of service: 11/10/17 Principal diagnosis: s/p primary csec, pneumonia Patient reports: appetite normal, voiding normally, pain well controlled, flatus , ambulating normally : in NICU Objective - Vital Signs Latest vital signs: Vital Signs Temp Pulse Resp BP BP Pulse Ox 11/10/17 04:15 98.7 F 59 L 18 122/79 11/10/17 03:00 98.6 F 11/10/17 01:35 99 F 126 H 116/58 95 11/09/17 23:50 102 F H 120 H 20 106/56 11/09/17 23:20 103 F H 123 H 20 115/55 11/09/17 22:50 97.9 F 133 H 18 123/68 11/09/17 22:20 99.8 F H 130 H 18 114/52 11/09/17 22:02 102 F H 134 H 20 118/64 11/09/17 21:50 102.9 F H 134 H 117/57 96 11/09/17 21:39 102.7 F H 139 H 18 114/59 11/09/17 21:20 103 F H 138 H 20 114/60 11/09/17 20:50 102 F H 134 H 20 118/64 11/09/17 20:30 101.2 F H 115 H 18 118/64 11/09/17 20:20 101.7 F H 130 H 18 122 H 11/09/17 19:50 103 F H 131 H 20 124/67 11/09/17 19:20 103 F H 136 H 20 134/63 11/09/17 19:04 133 H 20 102/49 11/09/17 16:24 98.4 F 116 H 20 105/60 11/09/17 09:15 97.5 F L 101 H 20 116/70 Intake and Output 11/09/17 11/10/17 11/10/17 23:59 07:59 15:59 Intake Total 360 100 Output Total 1450 Balance 360 -1350 Intake: IV 100 POLYCILLIN/NS 2 GM/100 ML 100 2 gm In 100 ml @ 100 mls /hr IV Q4HR [facility] Rx#: [id number] Oral 360 Blood Product 0 0 Leukoreduced Red Blood 0 0 Cells Unit [id number] Leukoreduced Red Blood 0 Cells Unit [id number] Output: Urine 1450 Void 1450 Other: Total, Intake Amount 120 Total, Output Amount 650 # Voids Void 1 - Exam Breasts: Present: normal Cardiovascular: Present: Regular rate, Normal S1 Lungs: Present: Normal air movement Abdomen: Present: normal appearance, soft, normal bowel sounds. Absent: distention, tenderness, guarding Vulva: both: normal Uterus: Present: normal, firm, fundal height below umbilicus. Absent: bogginess , tenderness Extremities: Present: normal Deep Tendon Reflex Grade: Normal +2 Incision: Present: normal, dry, intact - Labs Labs: Abnormal lab results 11/08/17 Range/Units 02:00 Crossmatch See Detail
[2017-11-10 08:23] LABS: Hematocrit 27.9 % (30.3-42.9); Hemoglobin 8.5 gm/dl (10.1-14.3); Mean Corpuscular HGB Conc 30 % (30-34); Mean Corpuscular Volume 71 fl (79-97); Platelet Count 297 K/mm3 (140-440); Red Blood Count 3.92 M/mm3 (3.65-5.03)
[2017-11-10 08:24] LABS: Mean Corpuscular Hemoglobin 22 pg (28-32)
[2017-11-10] MEDS: UNASYN/NS 3 GM/100 ML 3 GM/100 ML BAG IV SCH ×2 (08:47→16:00)
[2017-11-10 09:18] LABS: Band Neutrophils # (Manual) 2.6 K/mm3; Basophils % (Manual) 0 % (0.0-1.8); Eosinophils % (Manual) 0 % (0.0-4.3); Total Cells Counted 100
[2017-11-10 09:19] LABS: Anisocytosis 1+; Poikilocytosis 1+
[2017-11-10 09:20] LABS: Dimorphic RBC Yes; Hypochromasia 1+; Ovalocytes Few; Target Cells Few
[2017-11-10] MEDS: ZITHROMAX 500 MG in NACL 0.9% 250ML 250 ML IV SCH (10:37)
[2017-11-10 11:16] LABS: Alanine Aminotransferase 6 units/L (7-56); Albumin 2.2 g/dL (3.9-5); BUN/Creatinine Ratio 15; Blood Urea Nitrogen 6 mg/dL (7-17); Calcium 7.7 mg/dL (8.4-10.2); Hemolysis Index 0
--- NOTE | 2017-11-10 17:58 | Event Note ---
Date: 11/10/17 Late entry. On 11/10/17 around 2 PM, a meeting was convened including the patient , her grandmother, Dr Rivera (S[facility]), Dr Friend (NICU) and Alejandra Godinez from Risk Management to discuss the patient's care since she arrived at the hospital as well as the baby's treatment plan and progress. Both the patient and her family member were given an opportunity to ask questions. All questions answered and both parties expressed understanding.
[2017-11-10] MEDS ORDERED: KCL 20 MEQ in LACTATED RINGERS 1,000 ML IV SCH (21:00)
[2017-11-11] MEDS: UNASYN/NS 3 GM/100 ML 3 GM/100 ML BAG IV SCH ×4 (00:25→18:06)
[2017-11-11 07:34] LABS: Hematocrit 27.9 % (30.3-42.9); Hemoglobin 8.6 gm/dl (10.1-14.3); Mean Corpuscular HGB Conc 31 % (30-34); Mean Corpuscular Volume 72 fl (79-97); Platelet Count 339 K/mm3 (140-440); Red Blood Count 3.89 M/mm3 (3.65-5.03)
[2017-11-11 07:56] LABS: Mean Corpuscular Hemoglobin 22 pg (28-32); Red Cell Distribution Width 22.7 % (13.2-15.2)
--- NOTE | 2017-11-11 07:58 | Progress Note ---
Assessment and Plan A: POD#3 s/p emergent primary section Left lower lobe pneumonia on Unasyn and Azithromycin s/p ID consult today ; Report pending; last fever this morning Acute on chronic anemia s/p 2 units PRBCs Delayed return of bowel function GERD P: Initiate PPI Continue IV antibiotics until afebrile 24 hrs then transition to PO Bowel regimen Encourage ambulation Closely monitor clinical status Subjective - Subjective Date of service: 11/11/17 Principal diagnosis: s/p primary csec, pneumonia Interval history: Pt still feels rather weak today. She reports that she feels nauseated when she eats. Patient reports: appetite normal, voiding normally, pain well controlled, flatus , nauseated, no bowel movement [place]: in NICU Objective - Vital Signs Latest vital signs: Vital Signs Temp Pulse Resp BP BP Pulse Ox 11/11/17 02:10 97.4 F L 11/11/17 00:59 100.8 F H 116 H 16 140/83 11/10/17 16:24 97.6 F 96 H 18 124/78 100 11/10/17 09:03 97.7 F 81 18 97 11/10/17 08:00 97.7 F Intake and Output 11/10/17 11/11/17 11/11/17 22:59 06:59 14:59 Intake Total 340 220 Balance 340 220 Intake: IV 100 100 UNASYN/NS 3 GM/100 ML 3 100 100 gm In 100 ml @ 200 mls/hr IV Q6HR [facility] Rx#: [id number] Intake, Free Water 240 120 Other: # Voids Void 1 2 - Exam Breasts: Present: deferred Cardiovascular: Present: Regular rate Lungs: Present: Clear to auscultation Abdomen: Present: soft, distention (mild ), abnormal bowel sounds (hypoactive ) Uterus: Present: fundal height below umbilicus Extremities: Present: normal Incision: Present: intact - Labs Labs: Abnormal lab results 11/10/17 11/10/17 11/11/17 Range/Units 08:02 10:36 06:46 WBC 23.2 H 24.1 H (4.5-11.0) K/mm3 Hgb 8.5 L 8.6 L (10.1-14.3) gm/dl Hct 27.9 L D 27.9 L (30.3-42.9) % MCV 71 L 72 L (79-97) fl MCH 22 L 22 L (28-32) pg RDW 22.0 H 22.7 H (13.2-15.2) % Seg Neuts % (Manual) 82.0 H (40.0-70.0) % Lymphocytes % (Manual) 5.0 L (13.4-35.0) % Seg Neutrophils # Man 19.0 H (1.8-7.7) K/mm3 Potassium 3.0 L (3.6-5.0) mmol/L BUN 6 L (7-17) mg/dL Creatinine 0.4 L (0.7-1.2) mg/dL Calcium 7.7 L (8.4-10.2) mg/dL ALT 6 L (7-56) units/L Total Protein 4.6 L (6.3-8.2) g/dL Albumin 2.2 L (3.9-5) g/dL
[2017-11-11 08:13] LABS: BUN/Creatinine Ratio 12; Blood Urea Nitrogen 7 mg/dL (7-17); Calcium 8.5 mg/dL (8.4-10.2)
[2017-11-11 08:14] LABS: Alanine Aminotransferase 7 units/L (7-56); Albumin 2.5 g/dL (3.9-5); Hemolysis Index 8
--- NOTE | 2017-11-11 08:14 | Consultation ---
History of Present Illness - Reason for Consult Consult date: 11/11/17 pneumonia s/p Csection Requesting physician: JEN SEPULVEDA - History of Present Illness 22 y/o female admitted on 11/08/17 with 37 weeks due to uterine contractions and leakage of fluid. While in triage pt began to have large repetitive variable decelerations down to the 60s with slow return to baseline. Her cervix was 2-3 cm dilated. She denies vaginal bleeding. She had care at [facility] since 29 wks complicated by late entry to care, trichomonas, gonorrhea and chlamydia with negative test of cure, genital herpes and anemia on iron thrice daily. She is GBS negative. Patient underwent emergent C section on November 08, 2017 for PROM, bradycardia and Severe Anemia. Upon admission, initial temperature was 98.3, heart rate 114, respiration 18, blood pressure 129/81. White count 12.7. Hemoglobin 6.6. Platelets 307. PCO2 of 47. Creat 0.5. By 11/09/17 she developed a fever of 103 and tachycardia , WBC went to 23K. Chest x-ray showed left perihilar and left lower lobe densities. Microbiology: Blood cultures: 11/10 ngtd Urine cultures: Current Antimicrobials: Unasyn 11/10 Azithromycin 11/10 Previous Antimicrobials: Amp Clinda Gent Past History Past Medical History: other (trichomonas, gonohrrea, genital herpes) Social history: no significant social history Medications and Allergies Allergies Allergy/AdvReac Type Severity Reaction Status Date / Time No Known Allergies Allergy Verified 07/30/13 17:24 Home Medications Medication Instructions Recorded Confirmed Last Taken Type Docusate Sodium [Colace] 100 mg PO BID PRN #60 capsule 11/10/17 Unknown Rx Ferrous Sulfate [Feosol 325 MG tab] 325 mg PO TID #90 tablet 11/10/17 Unknown Rx Ibuprofen [Motrin] 800 mg PO Q8HR PRN #30 tablet 11/10/17 Unknown Rx oxyCODONE /ACETAMINOPHEN [Percocet 1 tab PO Q6HR PRN #40 tablet 11/10/17 Unknown Rx 5/325] Active Meds: Active Medications Docusate Sodium (Colace) 100 mg PO BID PRN PRN Reason: Constipation Ferrous Sulfate (Feosol) 325 mg PO TID [facility] Last Admin: 05/17/18 16:09 Dose: 325 mg Hydromorphone HCl (Dilaudid) 0.5 mg IV Q10MIN PRN PRN Reason: Pain , Severe (7-10) Oxytocin/Sodium Chloride (Pitocin/Ns 20 Unit/1000ml Drip) 20 units in 1,000 mls @ 250 mls/hr IV DIRECT [facility] Ampicillin Sodium/Sulbactam Sodium (Unasyn/Ns 3 Gm/100 Ml) 3 gm in 100 mls @ 200 mls/hr IV Q6HR [facility]; Protocol Last Admin: 11/11/17 06:39 Dose: 200 mls/hr Azithromycin 500 mg/ Sodium (Chloride) 250 mls @ 250 mls/hr IV Q24HR [facility] Last Admin: 11/10/17 10:37 Dose: 250 mls/hr Potassium Chloride 20 meq/ (Lactated Ringer's) 1,010 mls @ 100 mls/hr IV DIRECT [facility] Ibuprofen (Motrin) 800 mg PO Q6H PRN PRN Reason: Pain, Mild (1-3) Last Admin: 11/10/17 22:53 Dose: 800 mg Ketorolac Tromethamine (Toradol) 30 mg IV Q6H PRN PRN Reason: Pain, Moderate (4-6) Stop: 11/13/17 05:51 Last Admin: 11/09/17 05:21 Dose: 30 mg Magnesium Hydroxide (Milk Of Magnesia) 30 ml PO Q6H [facility] Multi-Ingredient Ointment (Lansinoh) 1 applic TP PRN PRN PRN Reason: dryness/cracking Naloxone HCl (Narcan 0.4 Mg/1 Ml) 0.2 mg IV Q2MIN PRN PRN Reason: Res Rate </= 8 or 02 SAT < 92% Naloxone HCl (Narcan 0.4 Mg/1 Ml) 0.1 mg IV Q2MIN PRN PRN Reason: Res Rate </= 8 or 02 SAT < 92% Ondansetron HCl (Zofran) 4 mg IV Q8H PRN PRN Reason: Nausea And Vomiting Last Admin: 11/08/17 15:45 Dose: 4 mg Oxycodone/Acetaminophen (Percocet 5/325) 2 tab PO Q4H PRN PRN Reason: Pain, Moderate (4-6) Last Admin: 11/10/17 08:09 Dose: 2 tab Pantoprazole Sodium (Protonix) 20 mg PO QDAY [facility] Promethazine HCl (Phenergan) 25 mg PO Q6H PRN PRN Reason: Nausea And Vomiting Promethazine HCl (Phenergan) 25 mg NV Q6H PRN PRN Reason: Nausea And Vomiting Simethicone (Mylicon) 80 mg PO Q6H PRN PRN Reason: Gas pain Last Admin: 11/10/17 08:08 Dose: 80 mg Sodium Chloride (Sodium Chloride Flush Syringe 10 Ml) 10 ml IV PRN PRN PRN Reason: LINE FLUSH Witch Jewels/Glycerin (Tucks Pad) 1 each TP PRN PRN PRN Reason: Hemorrhoids/cleansing/soothing Review of Systems All systems: negative (reports reflux and heartburn, rest ROS neg) Physical Examination - Physical Exam Narrative exam: General appearance: Alert in NAD, conversant Eyes: anicteric sclerae, moist conjunctivae; no lid-lag; PERRLA HENT: Atraumatic; oropharynx clear Neck: Trachea midline; supple, no thyromegaly or lymphadenopathy Lungs: CTA, with normal respiratory effort and no intercostal retractions CV: RRR, no murmurs Abdomen: Soft, uterine fundus, TTP, C section no erythema and no discharge Extremities: No peripheral edema or extremity lymphadenopathy Skin: Normal temperature, turgor and texture; no rash, ulcers or subcutaneous nodules Psych: Appropriate affect, alert and oriented to person, place and time. Neuro: alert and oriented x 3. Moving all extermities Lines: - Constitutional Vitals: Vital Signs Temp Pulse Resp BP Pulse Ox 97.4 F L 116 H 16 140/83 100 11/11/17 02:10 11/11/17 00:59 11/11/17 00:59 11/11/17 00:59 11/10/17 16:24 Temperature -Last 24 Hours Temperature 97.4 F Temperature 100.8 F Temperature 97.6 F Temperature 97.7 F Results - Labs CBC & Chem 7: 11/11/17 06:46 11/11/17 06:46 Labs: Abnormal lab results 11/10/17 11/10/17 11/11/17 Range/Units 08:02 10:36 06:46 WBC 23.2 H 24.1 H (4.5-11.0) K/mm3 Hgb 8.5 L 8.6 L (10.1-14.3) gm/dl Hct 27.9 L D 27.9 L (30.3-42.9) % MCV 71 L 72 L (79-97) fl MCH 22 L 22 L (28-32) pg RDW 22.0 H 22.7 H (13.2-15.2) % Seg Neuts % (Manual) 82.0 H (40.0-70.0) % Lymphocytes % (Manual) 5.0 L (13.4-35.0) % Seg Neutrophils # Man 19.0 H (1.8-7.7) K/mm3 Potassium 3.0 L (3.6-5.0) mmol/L BUN 6 L (7-17) mg/dL Creatinine 0.4 L (0.7-1.2) mg/dL Calcium 7.7 L (8.4-10.2) mg/dL ALT 6 L (7-56) units/L Total Protein 4.6 L (6.3-8.2) g/dL Albumin 2.2 L (3.9-5) g/dL Assessment and Plan Assessment: 1) Sepsis: Present on admission, manifested by tachycardia and leukocytosis, then fever on 11/09. Etiology most likely pneumonia. 2) LLL pneumonia: likely aspiration pneumonia (patient c/o severe GERD) vs. CAP 3) with 37 weeks s/p emergent C section on November 08, 2017 for PROM, bradycardia and Severe Anemia. 4) Late entry to care 5) Trichomonas, Gonorrhea and Chlamydia during with negative test of cure 6) ? genital herpes 7) Severe anemia Plan: -follow-up blood cultures -obtain UA and urine culture -obtain respiratory cultures as possible -check Legionella urine antigen, Streptococcus pneumoniae urine antigen -check HIV, Gonorrhea and Chlamydia DNA probe -repeat CXR -continue unasyn and azithromycin for now -monitor fever and leukocytosis -if fever and leukocytosis improve in 24h ok to d/c on augmentin 875 mg PO BID total 7 days until 11/07/17 Thank you for your consultation, will follow up with you. Nieves Webster MD Infectious Diseases Specialist [facility] [phone] O [phone]
[2017-11-11] MEDS: MILK OF MAGNESIA PO SCH ×2 (08:59→18:05)
[2017-11-11] MEDS: FEOSOL PO SCH ×2 (08:59→12:29)
[2017-11-11] MEDS: ZITHROMAX 500 MG in NACL 0.9% 250ML 250 ML IV SCH (09:10)
[2017-11-11] MEDS: PERCOCET 5/325 PO PRN ×2 (09:10→18:05)
[2017-11-11] MEDS: PROTONIX PO SCH (10:05)
[2017-11-11 11:30] LABS: Anisocytosis 1+; Band Neutrophils # (Manual) 0.8 K/mm3; Basophils % (Manual) 0 % (0.0-1.8); Eosinophils % (Manual) 0 % (0.0-4.3); Hypochromasia 1+; Monocytes % (Manual) 6.5 % (0.0-7.3); Poikilocytosis 1+; Target Cells Few; Total Cells Counted 200
[2017-11-11 11:33] LABS: Ovalocytes Few
--- NOTE | 2017-11-11 12:10 | XRay Report ---
Chest 2 views: Compared to 11/09/17. Findings: Cardiomegaly. Trachea is midline. Linear density left perihilar area probably segmental or discoid atelectasis and less likely pneumonia. Pleural thickening right chest. No definite consolidated area identified. Impression: Linear density left lung as detailed above. Pleural thickening right chest.
[2017-11-11 15:31] LABS: Bilirubin,Urine NEG (Negative); Blood,Urine SM (Negative); Color,Urine Yellow (Yellow); Mucus,Urine FEW /HPF
[2017-11-11] MEDS: MYLICON PO PRN (18:05)
[2017-11-11] MEDS: MOTRIN PO PRN (18:05)
[2017-11-12] MEDS: UNASYN/NS 3 GM/100 ML 3 GM/100 ML BAG IV SCH ×4 (00:06→17:48)
[2017-11-12] MEDS: PERCOCET 5/325 PO PRN ×3 (03:48→22:56)
[2017-11-12] MEDS: MOTRIN PO PRN (05:25)
--- NOTE | 2017-11-12 10:15 | Progress Note ---
Assessment and Plan - Patient Problems (1) Left lower lobe pneumonia Current Visit: Yes Status: Acute Plan to address problem: Will send sputum culture Increase respiratory exercises Encourage ambulation Subjective - Subjective Date of service: 11/12/17 Principal diagnosis: s/p primary csec, pneumonia Interval history: The patient experienced a temperature spike this morning 202. She remains on IV antibiotics for a lower lobe pneumonia. The patient is not ambulating adequately. It was stressed to the patient the importance of use of her incentive spirometer. Patient reports: appetite normal, voiding normally Objective - Vital Signs Latest vital signs: Vital Signs Temp Pulse Resp BP Pulse Ox 11/12/17 08:35 102.1 F H 109 H 20 133/71 97 11/12/17 04:35 100.6 F H 90 18 122/77 11/12/17 00:00 98.2 F 81 20 131/88 11/11/17 21:55 98.5 F 105 H 18 125/87 Intake and Output 11/11/17 11/12/17 11/12/17 22:59 06:59 14:59 Intake Total 100 580 Balance 100 580 Intake: IV 100 100 UNASYN/NS 3 GM/100 ML 3 100 100 gm In 100 ml @ 200 mls/hr IV Q6HR [facility] Rx#: [id number] Intake, Free Water 480 Other: # Voids Void 1 - Exam Abdomen: Present: normal appearance, soft Incision: Present: normal - Labs Labs: Abnormal lab results 11/11/17 11/11/17 11/11/17 Range/Units 06:46 09:56 14:30 Seg Neuts % (Manual) 82.5 H (40.0-70.0) % Lymphocytes % (Manual) 7.5 L (13.4-35.0) % Seg Neutrophils # Man 19.9 H (1.8-7.7) K/mm3 Monocytes # (Manual) 1.6 H (0.0-0.8) K/mm3 C-Reactive Protein 25.90 H (0.00-1.30) mg/dL Urine WBC (Auto) 13.0 H (0.0-6.0) /HPF
[2017-11-12] MEDS: ZITHROMAX 500 MG in NACL 0.9% 250ML 250 ML IV SCH (10:23)
[2017-11-12] MEDS: FEOSOL PO SCH ×2 (10:23→22:55)
[2017-11-12] MEDS: MYLICON PO PRN (10:29)
[2017-11-12] MEDS: ZOFRAN IV PRN (10:45)
[2017-11-12 12:32] LABS: Hemoglobin 7.2 gm/dl (10.1-14.3); Mean Corpuscular HGB Conc 31 % (30-34); Mean Corpuscular Volume 70 fl (79-97); Platelet Count 331 K/mm3 (140-440); Red Blood Count 3.28 M/mm3 (3.65-5.03)
[2017-11-12 12:35] LABS: Mean Corpuscular Hemoglobin 22 pg (28-32); Red Cell Distribution Width 22.7 % (13.2-15.2)
[2017-11-12] MEDS: PROTONIX PO SCH (12:45)
[2017-11-12 13:20] LABS: Anisocytosis 1+; Band Neutrophils # (Manual) 0.8 K/mm3; Basophils % (Manual) 0 % (0.0-1.8); Eosinophils % (Manual) 0 % (0.0-4.3); Hypochromasia 1+; Ovalocytes Few; Platelet Estimate Consistent w Auto; Target Cells Few; Total Cells Counted 200
[2017-11-12] MEDS: MILK OF MAGNESIA PO SCH ×2 (18:23→18:24)
[2017-11-13] MEDS: UNASYN/NS 3 GM/100 ML 3 GM/100 ML BAG IV SCH ×4 (00:37→23:46)
[2017-11-13] MEDS: MOTRIN PO PRN ×3 (03:29→23:58)
[2017-11-13] MEDS: ZITHROMAX 500 MG in NACL 0.9% 250ML 250 ML IV SCH (09:59)
[2017-11-13] MEDS: FEOSOL PO SCH ×5 (10:00→20:27)
[2017-11-13] MEDS: PROTONIX PO SCH (10:00)
--- NOTE | 2017-11-13 10:27 | Progress Note ---
Assessment and Plan - Patient Problems (1) Left lower lobe pneumonia Current Visit: Yes Status: Acute Plan to address problem: Patient demonstrating clinical improvement Discharge home Subjective - Subjective Date of service: 11/13/17 Principal diagnosis: s/p primary csec, pneumonia Interval history: The patient states feeling better today. She reports ambulating to the NICU today and feeding her infant. Her pain is better controlled. She denies any shortness of breath. The patient has remained afebrile for over 24 hours. Patient reports: appetite normal, voiding normally, pain well controlled : in NICU Objective - Vital Signs Latest vital signs: Vital Signs Temp Pulse Resp BP Pulse Ox 11/13/17 09:05 98.5 F 79 18 120/66 11/13/17 04:29 18 11/13/17 04:20 98.9 F 101 H 18 136/83 11/13/17 03:29 22 11/13/17 00:00 99.8 F H 95 H 18 132/82 11/12/17 23:56 18 11/12/17 20:05 98.0 F 109 H 20 124/84 11/12/17 17:20 98.2 F 104 H 20 131/89 11/12/17 12:00 98.5 F 94 H 20 123/73 93 11/12/17 10:29 20 Intake and Output 11/12/17 11/13/17 11/13/17 22:59 06:59 14:59 Intake Total 700 100 360 Balance 700 100 360 Intake: IV 100 100 UNASYN/NS 3 GM/100 ML 3 100 100 gm In 100 ml @ 200 mls/hr IV Q6HR [facility] Rx#: [id number] Oral 600 360 Other: Total, Intake Amount 240 360 # Voids Void 1 1 1 - Exam Abdomen: Present: normal appearance, soft - Labs Labs: Abnormal lab results 11/12/17 Range/Units 12:20 WBC 20.2 H (4.5-11.0) K/mm3 RBC 3.28 L (3.65-5.03) M/mm3 Hgb 7.2 L (10.1-14.3) gm/dl Hct 23.0 L (30.3-42.9) % MCV 70 L (79-97) fl MCH 22 L (28-32) pg RDW 22.7 H (13.2-15.2) % Seg Neuts % (Manual) 90.0 H (40.0-70.0) % Lymphocytes % (Manual) 3.0 L (13.4-35.0) % Seg Neutrophils # Man 18.2 H (1.8-7.7) K/mm3 Lymphocytes # (Manual) 0.6 L (1.2-5.4) K/mm3
--- NOTE | 2017-11-13 10:31 | Discharge Summary ---
Providers - Providers Date of Admission: 11/08/17 01:47 Date of discharge: 11/13/17 Attending physician: JEN SEPULVEDA 11/08/17 05:52 Consult to Investment Officer [CONS] Routine Reason For Exam: 11/11/17 07:00 Consult to Physician [CONS] Routine Comment: Consulting Provider: DOUG ALEGRIA Physician Instructions: Reason For Exam: pneumonia, s/p section Primary care physician: JEN SEPULVEDA Hospitalization Reason for admission: active labor Delivery: Procedure: section, primary low transverse Incision: normal complications: other (left lower lobe pneumonia) Discharge diagnosis: IUP at term delivered Hospital course: The patient was admitted secondary to having evidence of nonreassuring heart rate tracing while in triage. The patient was taken for primary delivery. Postoperative course is complicated by a left lower lobe pneumonia and repeated febrile episodes. Infectious disease was consulted for antibiotic therapy. The patient temperatures normalized and she was discharged home on by mouth antibiotics. Condition at discharge: Good Disposition: DC-01 TO HOME OR SELFCARE - Discharge Diagnoses (1) Left lower lobe pneumonia Status: Acute Plan - Discharge Medications Prescriptions: Azithromycin [Zithromax TAB] 500 mg PO QDAY #7 tablet Docusate Sodium [Colace] 100 mg PO BID PRN #60 capsule PRN Reason: Constipation Ferrous Sulfate [Feosol 325 MG tab] 325 mg PO TID #90 tablet Ibuprofen [Motrin] 800 mg PO Q8HR PRN #30 tablet PRN Reason: Pain oxyCODONE /ACETAMINOPHEN [Percocet 5/325] 1 tab PO Q6HR PRN #40 tablet PRN Reason: Pain - Provider Discharge Summary Activity: no sex for 6 weeks, no heavy lifting 4 weeks, no strenuous exercise Diet: routine Instructions: routine Additional instructions: [] Smoking cessation referral if applicable(refer to patient education folder for contact #) [] Refer to [facility] Booklet Call your doctor immediately for: * Fever > 100.5 * Heavy vaginal bleeding ( >1 pad per hour) * Severe persistent headache * Shortness of breath * Reddened, hot, painful area to leg or breast * Drainage or odor from incision. * Keep incision clean and dry at all times and follow doctor's instructions regarding bathing/showering Follow-up in 2 weeks for an incision check - Follow up plan
[2017-11-13] MEDS: PERCOCET 5/325 PO PRN ×2 (13:45→20:27)
[2017-11-13] MEDS: MILK OF MAGNESIA PO SCH ×2 (13:50→13:54)
[2017-11-13] MEDS ORDERED: NACL 0.9% 250ML 250 ML ONE (16:53)
[2017-11-13] MEDS: ZOFRAN IV PRN (20:26)
--- NOTE | 2017-11-14 01:23 | Event Note ---
Date: 11/13/17 Patient had remained afebrile for 24 hours and was given a discharge order home. She spiked another temperature prior to discharge. The patient was re- initiated on IV antibiotics.
[2017-11-14] MEDS: UNASYN/NS 3 GM/100 ML 3 GM/100 ML BAG IV SCH ×4 (05:15→22:45)
[2017-11-14 06:00] LABS: Hematocrit 23.5 % (30.3-42.9); Hemoglobin 7.1 gm/dl (10.1-14.3); Mean Corpuscular HGB Conc 30 % (30-34); Mean Corpuscular Volume 72 fl (79-97); Platelet Count 443 K/mm3 (140-440); Red Blood Count 3.25 M/mm3 (3.65-5.03)
[2017-11-14 06:07] LABS: Mean Corpuscular Hemoglobin 22 pg (28-32); Red Cell Distribution Width 24.5 % (13.2-15.2)
[2017-11-14 08:17] LABS: Anisocytosis 1+; Band Neutrophils # (Manual) 2.1 K/mm3; Basophils % (Manual) 0 % (0.0-1.8); Hypochromasia 2+; Platelet Estimate Consistent w Auto; Total Cells Counted 100
[2017-11-14] MEDS: FEOSOL PO SCH ×3 (09:13→19:44)
[2017-11-14] MEDS: ZITHROMAX 500 MG in NACL 0.9% 250ML 250 ML IV SCH (09:13)
[2017-11-14] MEDS: PROTONIX PO SCH (09:13)
[2017-11-14] MEDS: PERCOCET 5/325 PO PRN ×3 (09:13→22:44)
--- NOTE | 2017-11-14 09:36 | Progress Note ---
Subjective - Subjective Date of service: 11/14/17 Principal diagnosis: s/p primary csec, pneumonia Interval history: Pt was scheduled for discharge yesterday, but she spiked a fever of Objective - Vital Signs Latest vital signs: Vital Signs Temp Pulse Resp BP Pulse Ox 11/14/17 04:34 98.7 F 71 20 128/80 11/14/17 01:24 98 F 68 18 132/78 11/13/17 21:00 98.5 F 80 18 124/69 11/13/17 15:42 102.5 F H 110 H 18 120/66 93 11/13/17 13:55 99.2 F 93 H 18 150/92 97 11/13/17 13:45 20 11/13/17 13:44 20 Intake and Output 11/13/17 11/14/17 11/14/17 22:59 06:59 14:59 Intake Total 700 340 Balance 700 340 Intake: IV 100 100 UNASYN/NS 3 GM/100 ML 3 100 100 gm In 100 ml @ 200 mls/hr IV Q6HR [facility] Rx#: [id number] Oral 360 Intake, Free Water 240 240 Other: Total, Intake Amount 120 # Voids Void 1 1 # Bowel Movements 1 - Labs Labs: Abnormal lab results 11/14/17 Range/Units 05:43 WBC 19.4 H (4.5-11.0) K/mm3 RBC 3.25 L (3.65-5.03) M/mm3 Hgb 7.1 L (10.1-14.3) gm/dl Hct 23.5 L (30.3-42.9) % MCV 72 L (79-97) fl MCH 22 L (28-32) pg RDW 24.5 H (13.2-15.2) % Plt Count 443 H (140-440) K/mm3 Lymphocytes % (Manual) 11.0 L (13.4-35.0) % Monocytes % (Manual) 10.0 H (0.0-7.3) % Seg Neutrophils # Man 13.0 H (1.8-7.7) K/mm3 Monocytes # (Manual) 1.9 H (0.0-0.8) K/mm3
--- NOTE | 2017-11-14 19:19 | Progress Note ---
Assessment and Plan Assessment: 1) Sepsis: still high fever and leukocytsis. Etiology most likely pneumonia +/ - UTI +/- choriammionitis. 2) LLL pneumonia: likely aspiration pneumonia (patient c/o severe GERD) vs. CAP -HIV neg -Repeat CXR mild left sided pneumonia 3) with 37 weeks s/p emergent C section on November 08, 2017 for PROM, bradycardia and Severe Anemia. 4) Late entry to care 5) Trichomonas, Gonorrhea and Chlamydia during with negative test of cure 6) ? genital herpes 7) Severe anemia 8) Mild UTI Plan: -if fever continues consider chest and abdomen/pelvic CT eval for empyema, lung abscess, pelvic collections -repeat blood cultures -check CRP and procalcitonin -f/u Legionella urine antigen, Streptococcus pneumoniae urine antigen -continue unasyn and azithromycin D5 -monitor fever and leukocytosis Thank you for your consultation, will follow up with you. Nieves Webster MD Infectious Diseases Specialist [facility] M [phone] O [phone] Subjective Date of service: 11/14/17 Principal diagnosis: s/p primary csec, pneumonia Interval history: Feels better, wants to go home. Had another spike 102.5 yesterday but no fever since then. Microbiology: Blood cultures: 11/10 ngtd Urine cultures: Sputum: 11/12 poor sample Current Antimicrobials: Unasyn 11/10 Azithromycin 11/10 Previous Antimicrobials: Amp Clinda Gent Objective - Exam Narrative Exam: General appearance: Alert in NAD, conversant Eyes: anicteric sclerae, moist conjunctivae; no lid-lag; PERRLA HENT: Atraumatic; oropharynx clear Neck: Trachea midline; supple, no thyromegaly or lymphadenopathy Lungs: CTA, with normal respiratory effort and no intercostal retractions CV: RRR, no murmurs Abdomen: Soft, uterine fundus, TTP, C section no erythema and no discharge Extremities: No peripheral edema or extremity lymphadenopathy Skin: Normal temperature, turgor and texture; no rash, ulcers or subcutaneous nodules Psych: Appropriate affect, alert and oriented to person, place and time. Neuro: alert and oriented x 3. Moving all extermities Lines: - Constitutional Vitals: Vital Signs Temp Pulse Resp BP Pulse Ox 98.5 F 90 18 135/81 93 11/14/17 14:35 11/14/17 14:35 11/14/17 14:35 11/14/17 14:35 11/13/17 15:42 Temperature -Last 24 Hours Temperature 98.5 F Temperature 98.8 F Temperature 98.7 F Temperature 98 F Temperature 98.5 F - Labs CBC & Chem 7: 11/14/17 05:43 11/11/17 06:46 Labs: Abnormal lab results 11/14/17 Range/Units 05:43 WBC 19.4 H (4.5-11.0) K/mm3 RBC 3.25 L (3.65-5.03) M/mm3 Hgb 7.1 L (10.1-14.3) gm/dl Hct 23.5 L (30.3-42.9) % MCV 72 L (79-97) fl MCH 22 L (28-32) pg RDW 24.5 H (13.2-15.2) % Plt Count 443 H (140-440) K/mm3 Lymphocytes % (Manual) 11.0 L (13.4-35.0) % Monocytes % (Manual) 10.0 H (0.0-7.3) % Seg Neutrophils # Man 13.0 H (1.8-7.7) K/mm3 Monocytes # (Manual) 1.9 H (0.0-0.8) K/mm3
[2017-11-15] MEDS: MOTRIN PO PRN (01:38)
[2017-11-15] MEDS: UNASYN/NS 3 GM/100 ML 3 GM/100 ML BAG IV SCH (05:14)
[2017-11-15 08:47] VITALS: BP 134/76
--- NOTE | 2017-11-15 08:56 | Progress Note ---
Assessment and Plan - Patient Problems (1) Left lower lobe pneumonia Current Visit: Yes Status: Acute Plan to address problem: The patient demonstrates clinical improvement Will discharge home on by mouth antibiotics Subjective - Subjective Date of service: 11/15/17 Principal diagnosis: s/p primary csec, pneumonia Interval history: The patient reports feeling much better today. She had a low-grade temp of 100.3 approximately 220 this a.m. but is currently afebrile. Patient is tolerating regular diet and her pain is well-controlled. Her leukocytosis is gradually trending downward. The patient has increased her ambulation and reports being able to void without difficulty. Patient reports: appetite normal, voiding normally, pain well controlled [place]: in NICU Objective - Vital Signs Latest vital signs: Vital Signs Temp Pulse Resp BP BP Pulse Ox 11/15/17 08:08 98.8 F 68 20 134/76 92 11/15/17 05:04 99 F 75 20 126/77 88 11/15/17 02:20 100.3 F H 11/15/17 00:40 20 133/77 11/14/17 21:35 98.3 F 20 145/93 11/14/17 14:35 98.5 F 90 18 135/81 Intake and Output 11/14/17 11/15/17 11/15/17 22:59 06:59 14:59 Intake Total 460 220 Balance 460 220 Intake: IV 100 100 UNASYN/NS 3 GM/100 ML 3 100 100 gm In 100 ml @ 200 mls/hr IV Q6HR [facility] Rx#: [id number] Oral 360 Intake, Free Water 120 Other: Total, Intake Amount 360 # Voids Void 1 1 - Exam Abdomen: Present: normal appearance, soft - Labs Labs: Abnormal lab results 11/14/17 Range/Units 21:11 C-Reactive Protein 28.90 H (0.00-1.30) mg/dL
--- NOTE | 2017-11-15 11:33 | Progress Note ---
Assessment and Plan Assessment: 1) Sepsis: fever trending down and leukocytsis to 19K. Etiology most likely pneumonia +/- UTI +/- choriammionitis. 2) LLL pneumonia: likely aspiration pneumonia (patient c/o severe GERD) vs. CAP -HIV neg -Repeat CXR mild left sided pneumonia -CRP=28 3) with 37 weeks s/p emergent C section on November 08, 2017 for PROM, bradycardia and Severe Anemia. 4) Late entry to care 5) Trichomonas, Gonorrhea and Chlamydia during with negative test of cure 6) ? genital herpes 7) Severe anemia 8) Mild UTI Plan: -primary team planning discharge -needs WBC check in 3-5 days -f/u Legionella urine antigen, Streptococcus pneumoniae urine antigen -continue unasyn and azithromycin D6 -upon discharge consider augmentin 875 mg po q12h total 10 days until 11/21 -monitor fever and leukocytosis Thank you for your consultation, will follow up with you. Nieves Webster MD Infectious Diseases Specialist [facility] M [phone] O [phone] Subjective Date of service: 11/15/17 Principal diagnosis: s/p primary csec, pneumonia Interval history: Feels better, wants to go home. Had another spike 100.3 yesterday but no fever since then. Microbiology: Blood cultures: 11/10 ngtd Urine cultures: Sputum: 11/12 poor sample Current Antimicrobials: Unasyn 11/10 Azithromycin 11/10 Previous Antimicrobials: Amp Clinda Gent Objective - Exam Narrative Exam: General appearance: Alert in NAD, conversant Eyes: anicteric sclerae, moist conjunctivae; no lid-lag; PERRLA HENT: Atraumatic; oropharynx clear Neck: Trachea midline; supple, no thyromegaly or lymphadenopathy Lungs: CTA, with normal respiratory effort and no intercostal retractions CV: RRR, no murmurs Abdomen: Soft, uterine fundus, TTP, C section no erythema and no discharge Extremities: No peripheral edema or extremity lymphadenopathy Skin: Normal temperature, turgor and texture; no rash, ulcers or subcutaneous nodules Psych: Appropriate affect, alert and oriented to person, place and time. Neuro: alert and oriented x 3. Moving all extermities Lines: - Constitutional Vitals: Vital Signs Temp Pulse Resp BP Pulse Ox 98.8 F 68 20 134/76 92 11/15/17 08:08 11/15/17 08:08 11/15/17 08:08 11/15/17 08:08 11/15/17 08:08 Temperature -Last 24 Hours Temperature 98.8 F Temperature 99 F Temperature 100.3 F Temperature 98.3 F Temperature 98.5 F - Labs CBC & Chem 7: 11/14/17 05:43 11/11/17 06:46 Labs: Abnormal lab results 11/14/17 Range/Units 21:11 C-Reactive Protein 28.90 H (0.00-1.30) mg/dL
== END 2017-11-15 09:30 | disposition home or self-care (01) | DRG 765 ==
LOC: TRG 00:47 → LD 01:47 → OB 05:49
PROVIDERS: ADMIT Obstetrics & Gynecology; ATTEND Obstetrics & Gynecology
PROC: 10D00Z1 Extraction of Products of Conception, Low, Open Approach (ICD-10-PCS; principal; 2017-11-08)
PROC: 30233N1 Transfusion of Nonautologous Red Blood Cells into Peripheral Vein, Percutaneous Approach (ICD-10-PCS; 2017-11-09)
PROC: 3E0234Z Introduction of Serum, Toxoid and Vaccine into Muscle, Percutaneous Approach (ICD-10-PCS; 2017-11-09)
DX: O76 Abnormality in fetal heart rate and rhythm complicating labor and delivery (principal); A41.9 Sepsis, unspecified organism; J69.0 Pneumonitis due to inhalation of food and vomit; O75.3 Other infection during labor; O99.52 Diseases of the respiratory system complicating childbirth; O42.913 Preterm premature rupture of membranes, unspecified as to length of time between rupture and onset of labor, third trimester; O77.0 Labor and delivery complicated by meconium in amniotic fluid; O99.02 Anemia complicating childbirth; K21.9 Gastro-esophageal reflux disease without esophagitis; Z3A.37 37 weeks gestation of pregnancy; D64.9 Anemia, unspecified; O99.62 Diseases of the digestive system complicating childbirth; O98.32 Other infections with a predominantly sexual mode of transmission complicating childbirth; A60.00 Herpesviral infection of urogenital system, unspecified; Z23 Encounter for immunization; Z37.0 Single live birth; J45.909 Unspecified asthma, uncomplicated
CPT/HCPCS: 36415; 71045; 71046; 80053; 81001; 82803; 85007; 85014; 85018; 85025; 85027; 86038; 86140; 86160; 86592; 86850; 86900; 86901; 86920; 87040; 87086; 87205; 87806; 88307; 99211; A6250; G0463; J0290; J0295; J0330; J0456; J0690; J1170; J1580; J1885; J2270; J2370; J2405; J2590; J2704; J2765; J3480; J7040; J7050; J7120; J7121; P9016

== ENCOUNTER 2021-01-07 00:22 | Inpatient (IN) | payer MEDICAID ==
[2021-01-07] MEDS ORDERED: ACETAMINOPHEN 325 MG TAB PO STA (07:04)
--- NOTE | 2021-01-07 07:07 | Event Note ---
Date of service: 01/07/21 Face to Face: During the history and physical I am chaperoned by Amaya Ryan. The patient is a 25-year-old female. She presents to the ER with a complaint of lower abdominal pain, nontraumatic left medial thigh pain. She reports a positive chlamydia exposure. She has a tender left leg, in the proximal thigh, with soft compartments. Minimal lower abdominal tenderness. Pelvic examination performed by physician merchandising assistant suggest pelvic inflammatory disease. Laboratory studies demonstrate rhabdomyolysis, with a CK of 27,000. Obtain CT scan abdomen pelvis, and left lower extremity. Obtain pelvic ultrasound. Start IV fluids, ceftriaxone, and doxycycline. Obtain SUPPLY ANALYST consultation. Admit to the medical service for PID, and rhabdomyolysis. Have discussed this plan of care with the physician merchandising assistant. She is agreeable to the aforementioned. Patient is agreeable to the aforementioned. No facial droop. Tongue midline. Extraocular movements intact bilaterally. Facial sensation intact to light touch in V1, V2, V3 distribution bilaterally. 5 and a 5 strength in 4 extremities. Sensation intact to light touch in 4 extremities. 2+ pulses noted in the bilateral upper and lower extremities. There is no palpable cord. negative Homans sign. Muscular compartments are soft. The left leg is tender. There is a chronic discoloration of the left medial thigh. The pelvis is stable. Vital Signs 01/07/21 01:25 Temperature 98.3 F Pulse Rate 84 Respiratory 16 Rate Blood Pressure 116/75 O2 Sat by Pulse 100 Oximetry Lab Results 01/07/21 01/07/21 01/07/21 Range/Units 07:34 07:34 Unknown WBC 4.3 L (4.5-11.0) K/mm3 RBC 4.14 (3.65-5.03) M/mm3 Hgb 10.4 (10.1-14.3) gm/dl Hct 32.2 (30.3-42.9) % MCV 78 L (79-97) fl MCH 25 L (28-32) pg MCHC 32 (30-34) % RDW 15.8 H (13.2-15.2) % Plt Count 291 (140-440) K/mm3 Lymph % (Auto) 48.3 H (13.4-35.0) % [place] % (Auto) 9.3 H (0.0-7.3) % Eos % (Auto) 1.2 (0.0-4.3) % Baso % (Auto) 0.5 (0.0-1.8) % Lymph # (Auto) 2.1 (1.2-5.4) K/mm3 [place] # (Auto) 0.4 (0.0-0.8) K/mm3 Eos # (Auto) 0.0 (0.0-0.4) K/mm3 Baso # (Auto) 0.0 (0.0-0.1) K/mm3 Seg Neutrophils % 40.7 (40.0-70.0) % Seg Neutrophils # 1.7 L (1.8-7.7) K/mm3 Sodium 140 (137-145) mmol/L Potassium 3.5 L (3.6-5.0) mmol/L Chloride 105.6 (98-107) mmol/L Carbon Dioxide 24 (22-30) mmol/L Anion Gap 14 mmol/L BUN 10 (7-17) mg/dL Creatinine 0.7 (0.6-1.2) mg/dL Estimated GFR > 60 ml/min BUN/Creatinine Ratio 14 % Glucose 94 (65-100) mg/dL Calcium 8.7 (8.4-10.2) mg/dL Total Creatine Kinase 17802 H (30-135) units/L Urine Color Yellow (Yellow) Urine Turbidity Clear (Clear) Urine pH 5.0 (5.0-7.0) Ur Specific [place] 1.024 (1.003-1.030) Urine Protein 30 mg/dl (Negative) mg/dL Urine Glucose (UA) Neg (Negative) mg/dL Urine Ketones Neg (Negative) mg/dL Urine Blood Sm (Negative) Urine Nitrite Neg (Negative) Urine Bilirubin Neg (Negative) Urine Urobilinogen 2.0 (<2.0) mg/dL Ur Leukocyte Esterase Neg (Negative) Urine WBC (Auto) 3.0 (0.0-6.0) /HPF Urine RBC (Auto) 2.0 (0.0-6.0) /HPF U Epithel Cells (Auto) 2.0 (0-13.0) /HPF Urine Mucus 3+ /HPF Urine HCG, Qual Negative (Negative) LEFT HIP 2 VIEW(S) INDICATION / CLINICAL INFORMATION: left leg pain and rhabdo COMPARISON: None available. FINDINGS: BONES / JOINT(S): No acute fracture or subluxation. No significant arthritis. SOFT TISSUES: No significant abnormality. ADDITIONAL FINDINGS: None. LEFT FEMUR 2 VIEW(S) INDICATION / CLINICAL INFORMATION: left leg pain and rhabdo COMPARISON: None available. FINDINGS: BONES / JOINT(S): No acute fracture or subluxation. No significant arthritis. SOFT TISSUES: No significant abnormality. ADDITIONAL FINDINGS: None. Signer Name: Ney Magana MD Signed: 01/07/2021 8:29 AM Workstation Name: [id number] Pelvic Ultrasound HISTORY: lower abd pain and pid. TECHNIQUE: Grayscale and color imaging performed. COMPARISON: CT abdomen/pelvis from today FINDINGS: Uterus measures 8.5 x 4.9 x 6.2 cm with calcified lower uterine scar noted. Endometrial echo complex is 4 mm which is normal. There is a simple cyst in the left ovary measuring 1.5 cm. Both ovaries otherwise appear unremarkable. No pelvic free fluid. IMPRESSION: No acute abnormality identified. Signer Name: Ozzy Smith MD Signed: 01/07/2021 10:46 AM Workstation Name: [id number] Pelvic Ultrasound HISTORY: lower abd pain and pid. TECHNIQUE: Grayscale and color imaging performed. COMPARISON: CT abdomen/pelvis from today FINDINGS: Uterus measures 8.5 x 4.9 x 6.2 cm with calcified lower uterine scar noted. Endometrial echo complex is 4 mm which is normal. There is a simple cyst in the left ovary measuring 1.5 cm. Both ovaries otherwise appear unremarkable. No pelvic free fluid. IMPRESSION: No acute abnormality identified. Signer Name: Ozzy Smith MD Signed: 01/07/2021 10:46 AM Workstation Name: [id number] CT LEFT LOWER EXTREMITY HISTORY: Left lower cavity pain and rhabdomyolysis COMPARISON: None. TECHNIQUE: Routine post-contrast CT of the left lower extremity obtained. CONTRAST: 100 mL's of Omnipaque 300 FINDINGS: Bones: No significant abnormality. Muscles: There is decreased attenuation of the abductor longus Subcutaneous soft tissues: No significant abnormality. Additional Findings: None. IMPRESSION: 1. Decreased attenuation of the abductor longus suggesting muscular strain. Signer Name: Baljit Brown DO Signed: 01/07/2021 9:55 AM Workstation Name: [id number] CT ABDOMEN AND PELVIS WITH CONTRAST HISTORY: Lower abdominal pain COMPARISON: None TECHNIQUE: Routine abdominal and pelvic CT exam performed following intravenous contrast administration.. All CT scans at this location are performed using CT dose reduction for ALARA by means of automated exposure control. FINDINGS: CT ABDOMEN: Lung Bases: No significant abnormality. Liver: No significant abnormality. Biliary: No significant abnormality. Spleen: No significant abnormality. Unenlarged. Pancreas: No significant abnormality. Adrenals: No significant abnormality. Kidneys: No significant abnormality. Lymphatics: No lymphadenopathy. Vasculature: No significant abnormality. Bowel/Peritoneum: No significant abnormality. No free air. No free fluid. Normal appendix. CT PELVIC: : No significant abnormality. Lymphatics: No lymphadenopathy. Osseous Structures: No aggressive appearing osseous lesions. Additional Findings: None IMPRESSION: 1. No significant abnormality. Signer Name: Milton Mays MD Signed: 01/07/2021 9:35 AM Workstation Name: [id number]
[2021-01-07 07:32] LABS: Bilirubin,Urine NEG (Negative); Blood,Urine SM (Negative); Color,Urine Yellow (Yellow); Mucus,Urine 3+ /HPF
--- NOTE | 2021-01-07 07:33 | Emergency Department Report ---
<ANEL ANNA - Last Filed: 02/24/21 16:09> ED Female HPI - General Chief complaint: Abdominal Pain Stated complaint: VAGINAL PAIN/SPOTTING/LEG PAIN Time Seen by Provider: 01/07/21 06:46 Source: patient Mode of arrival: Ambulatory Limitations: No Limitations - History of Present Illness Initial comments: 25-year-old -German female presents to the emergency room states that she has pelvic pain with vaginal discharge for 3 days. Patient states that she has a known exposure to chlamydia. Patient also reports that she has bilateral thigh pain. Patient denies any recent injury but reports that she had been working out and that the pain in her low upper thighs are 10 out of 10. Patient states is worse when she tries to stand or walk. Patient denies any nausea no vomiting no fevers. Last menstrual period was last month. MD Complaint: vaginal discharge, pelvic pain, possible STD, other (Bilateral thigh pain) Onset/Timin -: days(s) Location: suprapubic Severity: moderate Severity scale (0 -10): 8 Quality: cramping, sharp Consistency: constant Improves with: none Worsens with: movement Are you Now?: No Associated Symptoms: vaginal discharge, abdominal pain. denies: vaginal bleeding, nausea/vomiting, fever/chills, headaches, dysuria, hematuria, rash, shortness of breath, syncope, weakness - Related Data Sexually active: Yes (Possible exposure to chlamydia) Previous Rx's Medication Instructions Recorded Last Taken Type Docusate Sodium [Colace CAP] 100 mg PO BID PRN #60 capsule 11/10/17 01/05/21 08:00 Rx Ferrous Sulfate [Feosol 325 MG tab] 325 mg PO TID #90 tablet 11/10/17 01/05/21 08:00 Rx Ibuprofen [Motrin 800 MG tab] 800 mg PO Q8HR PRN #30 tablet 11/10/17 01/04/21 12:00 Rx DOXYCYCLINE Hyclate [Vibramycin 100 mg PO BID #28 tab 01/13/21 Unknown Rx CAP] Allergies Allergy/AdvReac Type Severity Reaction Status Date / Time No Known Allergies Allergy Verified 01/07/21 11:58 ED Review of Systems Comment: All other systems reviewed and negative ED Past Medical Hx - Past Medical History Previous Medical History?: No Hx Hypertension: No Hx Congestive Heart Failure: No Hx Diabetes: No Hx Deep Vein Thrombosis: No Hx Renal Disease: No Hx Sickle Cell Disease: No Hx Seizures: No Hx Asthma: No Hx COPD: No Hx HIV: No - Surgical History Past Surgical History?: Yes Additional Surgical History: csection x 2 - Social History Smoking Status: Never Smoker - Medications Home Medications: Home Medications Medication Instructions Recorded Confirmed Last Taken Type Docusate Sodium [Colace CAP] 100 mg PO BID PRN #60 capsule 11/10/17 01/08/21 01/05/21 08:00 Rx Ferrous Sulfate [Feosol 325 MG tab] 325 mg PO TID #90 tablet 11/10/17 01/08/21 01/05/21 08:00 Rx Ibuprofen [Motrin 800 MG tab] 800 mg PO Q8HR PRN #30 tablet 11/10/17 01/08/21 01/04/21 12:00 Rx DOXYCYCLINE Hyclate [Vibramycin 100 mg PO BID #28 tab 01/13/21 Unknown Rx CAP] ED Physical Exam - General Limitations: No Limitations General appearance: alert, in no apparent distress - Head Head exam: Present: atraumatic, normocephalic - ENT ENT exam: Present: normal exam - Neck Neck exam: Present: normal inspection, full ROM - Respiratory Respiratory exam: Present: normal lung sounds bilaterally. Absent: accessory muscle use - Cardiovascular Cardiovascular Exam: Present: regular rate - GI/Abdominal GI/Abdominal exam: Present: soft, tenderness. Absent: distended, guarding - External exam: Present: lesions Speculum exam: Present: vaginal discharge, cervical discharge Bi-manual exam: Present: cervical motion tendernes. Absent: adnexal tenderness, adnexal mass, uterine enlargement, uterine tenderness - Extremities Exam Extremities exam: Present: full ROM, tenderness (Upper thighs). Absent: calf tenderness - Back Exam Back exam: Present: normal inspection, full ROM - Neurological Exam Neurological exam: Present: alert, oriented X3 - Psychiatric Psychiatric exam: Present: normal affect, normal mood - Skin Skin exam: Present: warm, dry, intact, normal color. Absent: rash ED Course - Consultations Consultation #1: 01/07/21 08:[address] Womack informed him that patient is CK was 27,505, continue recommend BANQUET COORDINATOR consult for PID, ultrasound of pelvic, CT abdomen pelvic and left lower leg evaluation for any necrotizing fasciitis necrosis. To consult for admission to [facility] for rhabdomyolysis. 08:37 Spoke to Steph charge nurse to call for instrument mechanic weapons system BANQUET COORDINATOR. Consultation #2: 01/07/21 08:48 Spoke to Cynthia car wiper for my BANQUET COORDINATOR. She states start the patient on Rocephin and azithromycin. I informed her we will start patient on Rocephin 500 mg IV as well as doxycycline 100 mg IV. She states that Dr. Isamar White will consult patient. Orders placed for routine consultation in [facility]. ED Medical Decision Making - Lab Data Result diagrams: 01/07/21 07:34 01/07/21 07:34 - Radiology Data Radiology results: report reviewed [address] [address] XRay Report Signed Patient: HA ESPAÑA MR#: [id number] : 1995 Acct:[id number] Age/Sex: 25 / F ADM Date: 01/07/21 Loc: ED Attending Dr: Ordering Physician: THANIA WOMACK MD Date of Service: 01/07/21 Procedure(s): XR hip 2-3V LT Accession Number(s): [id number] cc: THANIA WOMACK MD Fluoro Time In Minutes: LEFT HIP 2 VIEW(S) INDICATION / CLINICAL INFORMATION: left leg pain and rhabdo COMPARISON: None available. FINDINGS: BONES / JOINT(S): No acute fracture or subluxation. No significant arthritis. SOFT TISSUES: No significant abnormality. ADDITIONAL FINDINGS: None. LEFT FEMUR 2 VIEW(S) INDICATION / CLINICAL INFORMATION: left leg pain and rhabdo COMPARISON: None available. FINDINGS: BONES / JOINT(S): No acute fracture or subluxation. No significant arthritis. SOFT TISSUES: No significant abnormality. ADDITIONAL FINDINGS: None. Signer Name: Ney Magana MD Signed: 01/07/2021 9:29 AM Workstation Name: [id number] Transcribed By: SS Dictated By: Ney Magana MD Electronically Authenticated By: Ney Magana MD Signed Date/Time: 01/07/21928 DD/ 7 TD/TT: [address] [address] XRay Report Signed Patient: HA ESPAÑA MR#: [id number] : 1995 Acct:[id number] Age/Sex: 25 / F ADM Date: 01/07/21 Loc: ED Attending Dr: Ordering Physician: THANIA WOMACK MD Date of Service: 01/07/21 Procedure(s): XR femur 2+V LT Accession Number(s): [id number] cc: THANIA WOMACK MD Fluoro Time In Minutes: LEFT HIP 2 VIEW(S) INDICATION / CLINICAL INFORMATION: left leg pain and rhabdo COMPARISON: None available. FINDINGS: BONES / JOINT(S): No acute fracture or subluxation. No significant arthritis. SOFT TISSUES: No significant abnormality. ADDITIONAL FINDINGS: None. LEFT FEMUR 2 VIEW(S) INDICATION / CLINICAL INFORMATION: left leg pain and rhabdo COMPARISON: None available. FINDINGS: BONES / JOINT(S): No acute fracture or subluxation. No significant arthritis. SOFT TISSUES: No significant abnormality. ADDITIONAL FINDINGS: None. Signer Name: Ney Magana MD Signed: 01/07/2021 9:29 AM Workstation Name: [id number] Transcribed By: SS Dictated By: Ney Magana MD Electronically Authenticated By: Ney Magana MD Signed Date/Time: 01/07/21928 DD/ 7 TD/TT: Print Cancel - Medical Decision Making 25-year-old -German female presents to the emergency room states that she has pelvic pain with vaginal discharge for 3 days. Patient states that she has a known exposure to chlamydia. Patient also reports that she has bilateral thigh pain. Patient denies any recent injury but reports that she had been working out and that the pain in her low upper thighs are 10 out of 10. Patient states is worse when she tries to stand or walk. Patient denies any nausea no vomiting no fevers. Last menstrual period was last month. Orders were CBC, urinalysis, CK for muscle pain of the thighs and BMP. Wet prep and gonorrhea chlamydia was ordered per Dr. Womack. Discussed with Dr. Nubia Jerry patient's CK came back 27,505. Initiated 2 L of fluid. Patient was ordered Rocephin 500 mg IV, doxycycline 100 mg IV, acetaminophen [address] abdomen and pelvic to flow down to the left lower extremities per ER attending as well as an ultrasound of pelvic per ER attending. test is negative. Urinalysis shows just a small amount of blood. Creatinine within normal limits. Critical Care Time: Yes (45) ED Disposition Clinical Impression: PID (acute pelvic inflammatory disease), Lower abdominal pain, Left leg pain, Exertional rhabdomyolysis Rhabdomyolysis Qualifiers: Rhabdomyolysis type: non-traumatic Qualified Code(s): M62.82 - Rhabdomyolysis Disposition: ADMITTED INPATIENT Is pt being admited?: Yes Does the pt Need Aspirin: Yes Condition: Good <THANIA WOMACK - Last Filed: 02/26/21 07:56> ED Review of Systems ROS: Stated complaint: VAGINAL PAIN/SPOTTING/LEG PAIN Other details as noted in HPI ED Course Vital Signs 01/07/21 01/07/21 01/07/21 01:25 07:04 10:08 Temperature 98.3 F Pulse Rate 84 70 68 Respiratory 16 15 16 Rate Blood Pressure 116/75 Blood Pressure 120/99 115/77 [Right] O2 Sat by Pulse 100 97 98 Oximetry 01/07/21 01/07/21 12:59 14:48 Temperature 98.0 F Pulse Rate 74 75 Respiratory 15 15 Rate Blood Pressure Blood Pressure 126/57 112/68 [Right] O2 Sat by Pulse 100 100 Oximetry - Reevaluation(s) Reevaluation #1: 02/26/21 07:55 agree with plan of care ED Medical Decision Making - Lab Data Result diagrams: 01/13/21 05:23 01/13/21 05:23 Critical care attestation.: If time is entered above; I have spent that time in minutes in the direct care of this critically ill patient, excluding procedure time. ED Disposition Is pt being admited?: Yes Does the pt Need Aspirin: No
[2021-01-07 07:34] LABS: HCG Qualitative,Urine Negative (Negative)
[2021-01-07 07:58] LABS: Basophils % (Auto) 0.5 % (0.0-1.8); Eosinophils % (Auto) 1.2 % (0.0-4.3); Hematocrit 32.2 % (30.3-42.9); Hemoglobin 10.4 gm/dl (10.1-14.3); Lymphocytes # (Auto) 2.1 K/mm3 (1.2-5.4); Lymphocytes % (Auto) 48.3 % (13.4-35.0); Mean Corpuscular HGB Conc 32 % (30-34); Mean Corpuscular Volume 78 fl (79-97); Monocytes # (Auto) 0.4 K/mm3 (0.0-0.8); Monocytes % (Auto) 9.3 % (0.0-7.3); Platelet Count 291 K/mm3 (140-440); Red Blood Count 4.14 M/mm3 (3.65-5.03); Red Cell Distribution Width 15.8 % (13.2-15.2)
[2021-01-07 08:11] LABS: Blood Urea Nitrogen 10 mg/dL (7-17); Calcium 8.7 mg/dL (8.4-10.2); Hemolysis Index 2
[2021-01-07 08:19] LABS: BUN/Creatinine Ratio 14
[2021-01-07] MEDS ORDERED: SODIUM CHLORIDE 0.9% 1000 ML 2,000 ML IV ONE (08:28)
[2021-01-07] MEDS ORDERED: LACTATED RINGERS 1,000 ML IV ONE (08:34)
[2021-01-07] MEDS ORDERED: DOXYCYCLINE HYCLATE 100 MG in SODIUM CHLORIDE 0.9% 250ML 250 ML IV ONE (09:00)
--- NOTE | 2021-01-07 09:34 | XRay Report ---
LEFT HIP 2 VIEW(S) INDICATION / CLINICAL INFORMATION: left leg pain and rhabdo COMPARISON: None available. FINDINGS: BONES / JOINT(S): No acute fracture or subluxation. No significant arthritis. SOFT TISSUES: No significant abnormality. ADDITIONAL FINDINGS: None. LEFT FEMUR 2 VIEW(S) INDICATION / CLINICAL INFORMATION: left leg pain and rhabdo COMPARISON: None available. FINDINGS: BONES / JOINT(S): No acute fracture or subluxation. No significant arthritis. SOFT TISSUES: No significant abnormality. ADDITIONAL FINDINGS: None. Signer Name: Ney Magana MD Signed: 01/07/2021 9:29 AM Workstation Name: [id number]
--- NOTE | 2021-01-07 10:39 | Cat Scan Report ---
CT ABDOMEN AND PELVIS WITH CONTRAST HISTORY: Lower abdominal pain COMPARISON: None TECHNIQUE: Routine abdominal and pelvic CT exam performed following intravenous contrast administrat ion.. All CT scans at this location are performed using CT dose reduction for ALARA by means of autom ated exposure control. FINDINGS: CT ABDOMEN: Lung Bases: No significant abnormality. Liver: No significant abnormality. Biliary: No significant abnormality. Spleen: No significant abnormality. Unenlarged. Pancreas: No significant abnormality. Adrenals: No significant abnormality. Kidneys: No significant abnormality. Lymphatics: No lymphadenopathy. Vasculature: No significant abnormality. Bowel/Peritoneum: No significant abnormality. No free air. No free fluid. Normal appendix. CT PELVIC: : No significant abnormality. Lymphatics: No lymphadenopathy. Osseous Structures: No aggressive appearing osseous lesions. Additional Findings: None IMPRESSION: 1. No significant abnormality. Signer Name: Milton Mays MD Signed: 01/07/2021 10:35 AM Workstation Name: [id number]
--- NOTE | 2021-01-07 11:00 | Cat Scan Report ---
CT LEFT LOWER EXTREMITY HISTORY: Left lower cavity pain and rhabdomyolysis COMPARISON: None. TECHNIQUE: Routine post-contrast CT of the left lower extremity obtained. CONTRAST: 100 mL's of Omnipaque 300 FINDINGS: Bones: No significant abnormality. Muscles: There is decreased attenuation of the abductor longus Subcutaneous soft tissues: No significant abnormality. Additional Findings: None. IMPRESSION: 1. Decreased attenuation of the abductor longus suggesting muscular strain. Signer Name: Baljit Brown DO Signed: 01/07/2021 10:55 AM Workstation Name: [id number]
--- NOTE | 2021-01-07 11:22 | History and Physical Report ---
History of Present Illness Date of examination: 01/07/21 Date of admission: 01/07/21 Chief complaint: pelvic pain History of present illness: This is a 25-year-old -[place] female who presents to the emergency room states that she has pelvic pain with vaginal discharge for 3 days and has a known exposure to chlamydia. Patient also reports bilateral thigh pain. Patient denies any recent injury but reports that she had been working out. Patient states that pain is worse when she tries to stand or walk, 10 out of 10 in severity. Patient denies any nausea vomiting or fevers. Last menstrual period was last month. CT scan and transvaginal US shows no TOA and GC/Chlm cx have been sent and are pending. She was given doxycyclin and rocephin in the ER. Now being admitted for further evaluation and Mx. 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 Neck: No neck pain or rigidity. Cardiovascular: No chest pain, no orthopnea, no palpitations, no leg swelling Respiratory: No shortness of breath, no cough, no congestion, no wheezing Gastrointestinal: no abdominal pain, no nausea, no vomiting Genitourinary : no dysuria, no hematuria Musculoskeletal: no joint swelling, + generalized muscle ache Integumentary: no rash, no pruritis Neurological: no parathesias, no numbness, no tingling Endocrine: no cold or heat intolerance, no polyuria or polydipsia Hematologic/Lymphatic: no easy bruising, no easy bleeding, no gland swelling Allergic/Immunologic: no urticaria, no angioedema. Medications and Allergies Allergies Allergy/AdvReac Type Severity Reaction Status Date / Time No Known Allergies Allergy Verified 01/07/21 11:58 Home Medications Medication Instructions Recorded Confirmed Last Taken Type Docusate Sodium [Colace] 100 mg PO BID PRN #60 capsule 11/10/17 01/08/21 01/05/21 08:00 Rx Ferrous Sulfate [Feosol 325 MG tab] 325 mg PO TID #90 tablet 11/10/17 01/08/21 01/05/21 08:00 Rx Ibuprofen [Motrin] 800 mg PO Q8HR PRN #30 tablet 11/10/17 01/08/21 01/04/21 12:00 Rx oxyCODONE /ACETAMINOPHEN [Percocet 1 tab PO Q6HR PRN #40 tablet 11/10/17 01/08/21 01/04/21 10:00 Rx 5/325] Exam - Physical Exam Narrative exam: GENERAL: well-developed ill looking young AAF lying on bed appeared to be in no discomfort. HEENT: Normocephalic. Atraumatic. No conjunctival congestion or icterus. Patient has moist mucous membranes. NECK: Supple. Trachea midline. CHEST/LUNGS: Clear to auscultated bilaterally, breathing nonlabored. No wheezes crackles or rhonchi. HEART/CARDIOVASCULAR: Regular in rate and rhythm. S1 and S2 positive. ABDOMEN: Abdomen is soft, nontender. Patient has normal bowel sounds. SKIN: There is no rash. Warm and dry. NEURO: No focal motor deficit. Follows command. MUSCULOSKELETAL: No joint effusion or tenderness. EXTRIMITY: No edema, no cyanosis or clubbing. PSYCH: Cooperative. - Constitutional Vitals: Temp Pulse Resp BP Pulse Ox 98.3 F 84 16 116/75 100 01/07/21 01:25 01/07/21 01:25 01/07/21 01:25 01/07/21 01:25 01/07/21 01:25 Results - Labs CBC & Chem 7: 01/07/21 07:34 01/08/21 09:52 Labs: Abnormal lab results 01/07/21 01/07/21 Range/Units 07:34 07:34 WBC 4.3 L (4.5-11.0) K/mm3 MCV 78 L (79-97) fl MCH 25 L (28-32) pg RDW 15.8 H (13.2-15.2) % Lymph % (Auto) 48.3 H (13.4-35.0) % Mora % (Auto) 9.3 H (0.0-7.3) % Seg Neutrophils # 1.7 L (1.8-7.7) K/mm3 Potassium 3.5 L (3.6-5.0) mmol/L Total Creatine Kinase 03002 H (30-135) units/L - Imaging and Cardiology CT scan - abdomen: report reviewed Assessment and Plan Acute PID -Continue IV Rocephin and Zithromax -Consulted GI and will follow recommendation -Wait for culture results Acute rhabdomyolysis, CPK >10546 -We will monitor CPK, -continue with hydration, monitor renal function Hypokalemia, replete and monitor DVT Px -SCD, patient is ambulatory,
--- NOTE | 2021-01-07 11:51 | Ultrasound Report ---
Pelvic Ultrasound HISTORY: lower abd pain and pid. TECHNIQUE: Grayscale and color imaging performed. COMPARISON: CT abdomen/pelvis from today FINDINGS: Uterus measures 8.5 x 4.9 x 6.2 cm with calcified lower uterine scar noted. Endom etrial echo complex is 4 mm which is normal. There is a simple cyst in the left ovary measuring 1.5 cm. Both ovaries otherwise appear unremarkable . No pelvic free fluid. IMPRESSION: No acute abnormality identified. Signer Name: Ozzy Smith MD Signed: 01/07/2021 11:46 AM Workstation Name: [id number]
[2021-01-07] MEDS: SODIUM CHLORIDE 0.9% 1000 ML 1,000 ML IV SCH ×2 (13:04→20:49)
[2021-01-07] MEDS: oxyCODONE /ACETAMINOPHEN 5-325MG TAB PO PRN (13:05)
--- NOTE | 2021-01-07 13:53 | Consultation ---
History of Present Illness Consult date: 01/07/21 Requesting physician: THANIA THAKKAR Reason for consult: pelvic pain, other (CMT, PID) History of present illness: 25-year-old -Swiss female presents to the emergency room states that she has pelvic pain with vaginal discharge for 3 days. Patient states that she has a known exposure to chlamydia. Pt states she was diagnosed and treated for chlamydia by pcp 4 wks ago. She has not had a test of cure since this time but states she feels the test will still be positive because she did not complete the treatment due to having some n/v with taking the medications. Pt also states she was diagnosed with UTI by primary care provider but again did not complete all of the antibx that were prescribed. States she does not know what she was taking. She denies any n/v at this time. CMT was noted on PA exam and gate guard was consulted for possible pid. CT scan and transvaginal CT shows no TOA and are normal from a gate guard perspective. Pt currently in on Rocephine and doxy. GC/Chlm cx have been sent and are pending. Pt regular gate guard is at the [facility] but she states she has not been able to get in to be seen since [facility]. 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 Social history: no significant social history - Obstetrical History : 5 Medications and Allergies Allergies Allergy/AdvReac Type Severity Reaction Status Date / Time No Known Allergies Allergy Verified 01/07/21 11:58 Home Medications Medication Instructions Recorded Confirmed Last Taken Type Docusate Sodium [Colace] 100 mg PO BID PRN #60 capsule 11/10/17 Unknown Rx Ferrous Sulfate [Feosol 325 MG tab] 325 mg PO TID #90 tablet 11/10/17 Unknown Rx Ibuprofen [Motrin] 800 mg PO Q8HR PRN #30 tablet 11/10/17 Unknown Rx oxyCODONE /ACETAMINOPHEN [Percocet 1 tab PO Q6HR PRN #40 tablet 11/10/17 Unknown Rx 5/325] Azithromycin [Zithromax TAB] 500 mg PO QDAY #7 tablet 11/13/17 Unknown Rx Active Meds: Active Medications Ferrous Sulfate (Ferrous Sulfate 325 Mg Tab) 325 mg PO TID OSEI Sodium Chloride (Nacl 0.9% 1000 Ml) 1,000 mls @ 150 mls/hr IV DIRECT OSEI Last Admin: 01/07/21 13:04 Dose: 150 mls/hr Documented by: Ceftriaxone Sodium (Rocephin/Ns 1 Gm/50 Ml) 1 gm in 50 mls @ 100 mls/hr IV Q24H OSEI; Protocol Oxycodone/Acetaminophen (Oxycodone /Acetaminophen 5-325mg Tab) 1 tab PO Q6HR PRN PRN Reason: PAIN Last Admin: 01/07/21 13:05 Dose: 1 tab Documented by: Review of Systems All systems: negative - Vital Signs Vital signs: Vital Signs Temp Pulse Resp BP Pulse Ox 98.3 F 84 16 116/75 100 01/07/21 01:25 01/07/21 01:25 01/07/21 01:25 01/07/21 01:25 01/07/21 01:25 Temp Pulse Resp BP Pulse Ox 98.3 F 74 15 126/57 100 01/07/21 01:25 01/07/21 12:59 01/07/21 12:59 01/07/21 12:59 01/07/21 12:59 - Physical Exam Breasts: Positive: deferred Lungs: Positive: Normal air movement Abdomen: Positive: other (pt lying face down and states due to pain in her leg it is painful for her to move.) Genitourinary (Female): Positive: other (please see PA note; pt was not re- examined.) Results Result Diagrams: 01/07/21 07:34 01/07/21 07:34 Abnormal lab results 01/07/21 01/07/21 Range/Units 07:34 07:34 WBC 4.3 L (4.5-11.0) K/mm3 MCV 78 L (79-97) fl MCH 25 L (28-32) pg RDW 15.8 H (13.2-15.2) % Lymph % (Auto) 48.3 H (13.4-35.0) % Lynn % (Auto) 9.3 H (0.0-7.3) % Seg Neutrophils # 1.7 L (1.8-7.7) K/mm3 Potassium 3.5 L (3.6-5.0) mmol/L Total Creatine Kinase 33486 H (30-135) units/L All other labs normal. Assessment and Plan - Patient Problems (1) Rhabdomyolysis Current Visit: Yes Status: Acute Qualifiers: Rhabdomyolysis type: non-traumatic Qualified Code(s): M62.82 - Rhabdomyolysis Plan to address problem: -care as per primary team (2) PID (acute pelvic inflammatory disease) Current Visit: No Status: Acute Plan to address problem: -cont current anitbx of doxy and rocephine -await cx -d/c home on oral threapy of doxy for a total of 14 days -cleared for d/c home or oral therapy from a gate guard standpoint with f/u in the office in 2 weeks. -my follow up with [facility] [phone]
[2021-01-07] MEDS: FERROUS SULFATE 325 MG TAB PO SCH ×2 (14:00→20:49)
[2021-01-07] MEDS ORDERED: MORPHINE 4 MG/1 ML INJ IV PRN (16:30)
[2021-01-07] MEDS: MORPHINE 2 MG/1 ML INJ IV PRN (16:36)
[2021-01-08] MEDS: oxyCODONE /ACETAMINOPHEN 5-325MG TAB PO PRN ×2 (01:50→21:44)
[2021-01-08] MEDS: SODIUM CHLORIDE 0.9% 1000 ML 1,000 ML IV SCH ×3 (05:39→23:36)
[2021-01-08 10:52] LABS: Blood Urea Nitrogen 3 mg/dL (7-17); Calcium 8.8 mg/dL (8.4-10.2); Hemolysis Index 1
[2021-01-08 10:56] LABS: BUN/Creatinine Ratio 5
[2021-01-08] MEDS: cefTRIAXone/NS 1 GM/50 ML 1 GM/50 ML BAG IV SCH (11:00)
[2021-01-08] MEDS: MORPHINE 2 MG/1 ML INJ IV PRN (11:46)
[2021-01-08] MEDS: DOXYCYCLINE 100 MG CAP PO SCH ×2 (13:18→21:40)
[2021-01-08] MEDS: FERROUS SULFATE 325 MG TAB PO SCH ×3 (13:18→21:40)
--- NOTE | 2021-01-08 14:04 | Progress Note ---
Assessment and Plan Acute PID -Continue IV Rocephin and Zithromax -Consulted obg/documentation manager and will follow recommendation -Wait for culture results Acute rhabdomyolysis, CPK >41055 -We will monitor CPK, -continue with hydration, monitor renal function Hypokalemia, repleted and monitor DVT Px -SCD, patient is ambulatory, Daily clinical course: 01/08/21: CPK >69153, pt cont to c/o difficulty walking and thigh pain. cont aggressive IV fluid patient, monitor CPK. Subjective Date of service: 01/08/21 Interval history: Patient seen and examined. Medical records and medication list reviewed. No acute event overnight noted by the RN. Patient denies any chest pain or difficulty breathing. Patient is tolerating diet. c/p difficulty walking and severe thigh pain Discussed plan of care at bedside with patient. Objective - Exam Narrative Exam: GENERAL: well-developed ill looking young AAF lying on bed appeared to be in no discomfort. HEENT: Normocephalic. Atraumatic. No conjunctival congestion or icterus. Patient has moist mucous membranes. NECK: Supple. Trachea midline. CHEST/LUNGS: Clear to auscultated bilaterally, breathing nonlabored. No wheezes crackles or rhonchi. HEART/CARDIOVASCULAR: Regular in rate and rhythm. S1 and S2 positive. ABDOMEN: Abdomen is soft, nontender. Patient has normal bowel sounds. SKIN: There is no rash. Warm and dry. NEURO: No focal motor deficit. Follows command. MUSCULOSKELETAL: No joint effusion or tenderness. EXTRIMITY: No edema, no cyanosis or clubbing. PSYCH: Cooperative. - Constitutional Vitals: Vital Signs - 12hr 01/08/21 01/08/21 04:25 11:49 Temperature 98.7 F 98.5 F Pulse Rate 65 Respiratory 16 18 Rate Blood Pressure 103/71 96/50 O2 Sat by Pulse 99 Oximetry - Labs CBC & Chem 7: 01/07/21 07:34 01/08/21 09:52 Labs: Abnormal lab results 01/08/21 Range/Units 09:52 Chloride 109.1 H (98-107) mmol/L BUN 3 L (7-17) mg/dL Total Creatine Kinase 14397 H (30-135) units/L
[2021-01-09] MEDS: SODIUM CHLORIDE 0.9% 1000 ML 1,000 ML IV SCH ×3 (06:19→22:04)
[2021-01-09 08:18] LABS: Alanine Aminotransferase 45 units/L (7-56); Albumin 3.5 g/dL (3.9-5); Blood Urea Nitrogen 6 mg/dL (7-17); Calcium 8.8 mg/dL (8.4-10.2); Hemolysis Index 3
[2021-01-09 08:22] LABS: BUN/Creatinine Ratio 10
[2021-01-09] MEDS: cefTRIAXone/NS 1 GM/50 ML 1 GM/50 ML BAG IV SCH (10:21)
[2021-01-09] MEDS: oxyCODONE /ACETAMINOPHEN 5-325MG TAB PO PRN ×2 (10:25→18:19)
[2021-01-09] MEDS: FERROUS SULFATE 325 MG TAB PO SCH ×3 (10:25→22:02)
[2021-01-09] MEDS: DOXYCYCLINE 100 MG CAP PO SCH ×2 (10:25→22:02)
[2021-01-09] MEDS ORDERED: ONDANSETRON 4 MG ODT TAB PO PRN ×2 (11:30→16:00)
[2021-01-09] MEDS ORDERED: ONDANSETRON 4 MG ODT TAB PO STA (11:44)
--- NOTE | 2021-01-09 16:54 | Progress Note ---
Assessment and Plan Assessment and plan: 25-year-old -[place] female who presents to the emergency room acute bilateral thigh pain and lower abdominal wall pain after working out at the gym for 1 day. Patient denies any recent injury. Patient states that pain is worse when she tries to stand or walk, 10 out of 10 in severity. Patient denies any nausea vomiting or fevers. She was found to have rhabdomyolysis with total CK and started on normal saline infusion at 150 mL/h. creatinine normal. WBC normal. Last menstrual period was last month. She admits to minimal vaginal discharge. Boyfriend was recently diagnosed with chlamydia. CT scan and transvaginal US shows no TOA and GC/Chlm serology have been sent and are pending. She was given doxycyclin and rocephin in the ER. 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 CARE TRANSITIONS NURSE consulted and following. Assessment: Rhabdomyolysis with severe upper thigh and the lower abdominal wall pains. Initial total CK 27,505 CK improving, today 17,043, creatinine remains normal. AST today 170 possible from rhabdo Continue hydration with normal saline at 150 mL/h. Monitor for volume overload, renal function, liver enzymes and electrolytes Patient has history of her boyfriend recently diagnosed with chlamydia Serology positive for chlamydia but negative for gonorrhea. Vaginal births smear positive for clue cells. Urine normal. Patient does not seem to have PID, she has lower abdominal wall pains from rhabdomyolysis Treating with Rocephin and doxycycline CARE TRANSITIONS NURSE consulted and following. 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 Anxiety discussed with the patient in detail as well as the nursing staff. Disposition: Will be discharged when CK drops to below 5000. History Interval history: Patient complains of upper thigh and lower abdominal wall pains, severe. Patient reports minimal vaginal discharge. Patient reports clear urine. Denies dysuria. No fever. Complains of some nausea. Hospitalist Physical - Constitutional Vitals: Temp Pulse Resp BP Pulse Ox 98.5 F 68 18 117/79 97 01/09/21 11:06 01/09/21 11:06 01/09/21 11:06 01/09/21 11:06 01/09/21 11:06 General appearance: Present: mild distress (From pains.) - EENT Eyes: Present: PERRL, EOM intact. Absent: scleral icterus, conjunctival injection ENT: clear oral mucosa - Neck Neck: Present: supple, masses or JVD - Respiratory Respiratory effort: normal Respiratory: bilateral: CTA - Cardiovascular Rhythm: regular - Extremities Extremities: pulses intact, No edema Extremity abnormal: other (Severe reproducible tenderness over upper thighs and lower anterior abdominal wall with palpation. No ecchymosis swelling, indura tion redness.) - Abdominal General gastrointestinal: soft, normal bowel sounds, other (Lower abdominal tenderness to palpation) - Integumentary Integumentary: Absent: rash - Psychiatric Psychiatric: other (Very anxious/tearful) - Neurologic Neurologic: no focal deficits Results - Labs CBC & Chem 7: 01/07/21 07:34 01/09/21 07:41 Labs: Laboratory Last Values WBC 4.3 K/mm3 (4.5-11.0) L 01/07/21 07:34 RBC 4.14 M/mm3 (3.65-5.03) 01/07/21 07:34 Hgb 10.4 gm/dl (10.1-14.3) 01/07/21 07:34 Hct 32.2 % (30.3-42.9) 01/07/21 07:34 MCV 78 fl (79-97) L 01/07/21 07:34 MCH 25 pg (28-32) L 01/07/21 07:34 MCHC 32 % (30-34) 01/07/21 07:34 RDW 15.8 % (13.2-15.2) H 01/07/21 07:34 Plt Count 291 K/mm3 (140-440) 01/07/21 07:34 Lymph % (Auto) 48.3 % (13.4-35.0) H 01/07/21 07:34 Bell % (Auto) 9.3 % (0.0-7.3) H 01/07/21 07:34 Eos % (Auto) 1.2 % (0.0-4.3) 01/07/21 07:34 Baso % (Auto) 0.5 % (0.0-1.8) 01/07/21 07:34 Lymph # (Auto) 2.1 K/mm3 (1.2-5.4) 01/07/21 07:34 Bell # (Auto) 0.4 K/mm3 (0.0-0.8) 01/07/21 07:34 Eos # (Auto) 0.0 K/mm3 (0.0-0.4) 01/07/21 07:34 Baso # (Auto) 0.0 K/mm3 (0.0-0.1) 01/07/21 07:34 Seg Neutrophils % 40.7 % (40.0-70.0) 01/07/21 07:34 Seg Neutrophils # 1.7 K/mm3 (1.8-7.7) L 01/07/21 07:34 Sodium 140 mmol/L (137-145) 01/09/21 07:41 Potassium 3.6 mmol/L (3.6-5.0) 01/09/21 07:41 Chloride 107.6 mmol/L (98-107) H 01/09/21 07:41 Carbon Dioxide 26 mmol/L (22-30) 01/09/21 07:41 Anion Gap 10 mmol/L 01/09/21 07:41 BUN 6 mg/dL (7-17) L 01/09/21 07:41 Creatinine 0.6 mg/dL (0.6-1.2) 01/09/21 07:41 Estimated GFR > 60 ml/min 01/09/21 07:41 BUN/Creatinine Ratio 10 % 01/09/21 07:41 Glucose 79 mg/dL (65-100) 01/09/21 07:41 Calcium 8.8 mg/dL (8.4-10.2) 01/09/21 07:41 Total Bilirubin < 0.20 mg/dL (0.1-1.2) 01/09/21 07:41 AST 170 units/L (5-40) H 01/09/21 07:41 ALT 45 units/L (7-56) 01/09/21 07:41 Alkaline Phosphatase 43 units/L (35-129) 01/09/21 07:41 Total Creatine Kinase 54187 units/L (30-135) H 01/09/21 07:41 Total Protein 5.5 g/dL (6.3-8.2) L 01/09/21 07:41 Albumin 3.5 g/dL (3.9-5) L 01/09/21 07:41 Albumin/Globulin Ratio 1.8 % 01/09/21 07:41 Urine Color Yellow (Yellow) 01/07/21 Unknown Urine Turbidity Clear (Clear) 01/07/21 Unknown Urine pH 5.0 (5.0-7.0) 01/07/21 Unknown Ur Specific [place] 1.024 (1.003-1.030) 01/07/21 Unknown Urine Protein 30 mg/dl mg/dL (Negative) 01/07/21 Unknown Urine Glucose (UA) Neg mg/dL (Negative) 01/07/21 Unknown Urine Ketones Neg mg/dL (Negative) 01/07/21 Unknown Urine Blood Sm (Negative) 01/07/21 Unknown Urine Nitrite Neg (Negative) 01/07/21 Unknown Urine Bilirubin Neg (Negative) 01/07/21 Unknown Urine Urobilinogen 2.0 mg/dL (<2.0) 01/07/21 Unknown Ur Leukocyte Esterase Neg (Negative) 01/07/21 Unknown Urine WBC (Auto) 3.0 /HPF (0.0-6.0) 01/07/21 Unknown Urine RBC (Auto) 2.0 /HPF (0.0-6.0) 01/07/21 Unknown U Epithel Cells (Auto) 2.0 /HPF (0-13.0) 01/07/21 Unknown Urine Mucus 3+ /HPF 01/07/21 Unknown Urine HCG, Qual Negative (Negative) 01/07/21 Unknown Thomas/IV: Voiding Method Toilet Active Medications - Current Medications Current Medications: Generic Name Dose Route Start Last Admin Trade Name Freq PRN Reason Stop Dose Admin Doxycycline Hyclate 100 mg 01/08/21 10:00 01/09/21 10:25 Doxycycline 100 Mg Cap PO 100 mg BID OSEI Administration Protocol Ferrous Sulfate 325 mg 01/07/21 14:00 01/09/21 15:28 Ferrous Sulfate 325 Mg Tab PO 325 mg TID OSEI Administration Sodium Chloride 1,000 mls @ 150 mls/hr 01/07/21 11:30 01/09/21 15:29 Nacl 0.9% 1000 Ml IV 150 mls/hr DIRECT OSEI Administration Ceftriaxone Sodium 1 gm in 50 mls @ 100 mls/hr 01/08/21 10:00 01/09/21 11:34 Rocephin/Ns 1 Gm/50 Ml IV Infused Q24H OSEI Infusion Protocol Morphine Sulfate 2 mg 01/07/21 16:27 01/08/21 11:46 Morphine 2 Mg/1 Ml Inj IV 2 mg Q4H PRN Administration Pain , Severe (7-10) Ondansetron HCl 4 mg 01/09/21 16:00 Ondansetron 4 Mg Odt Tab PO Q6HR PRN Nausea Oxycodone/Acetaminophen 1 tab 01/07/21 12:00 01/09/21 10:25 Oxycodone /Acetaminophen 5-325mg Tab PO 1 tab Q6HR PRN Administration PAIN
[2021-01-10] MEDS: oxyCODONE /ACETAMINOPHEN 5-325MG TAB PO PRN ×2 (05:47→22:54)
[2021-01-10 06:34] LABS: Basophils % (Auto) 0.3 % (0.0-1.8); Eosinophils # (Auto) 0.1 K/mm3 (0.0-0.4); Eosinophils % (Auto) 1.3 % (0.0-4.3); Hematocrit 31.1 % (30.3-42.9); Hemoglobin 9.8 gm/dl (10.1-14.3); Lymphocytes # (Auto) 2.1 K/mm3 (1.2-5.4); Lymphocytes % (Auto) 50.1 % (13.4-35.0); Mean Corpuscular HGB Conc 31 % (30-34); Mean Corpuscular Volume 79 fl (79-97); Monocytes # (Auto) 0.3 K/mm3 (0.0-0.8); Monocytes % (Auto) 8.1 % (0.0-7.3); Platelet Count 236 K/mm3 (140-440); Red Blood Count 3.96 M/mm3 (3.65-5.03); Red Cell Distribution Width 15.8 % (13.2-15.2)
[2021-01-10 07:01] LABS: Alanine Aminotransferase 45 units/L (7-56); Albumin 3.7 g/dL (3.9-5); Blood Urea Nitrogen 5 mg/dL (7-17); Calcium 8.6 mg/dL (8.4-10.2); Hemolysis Index 1
[2021-01-10 07:07] LABS: BUN/Creatinine Ratio 7
[2021-01-10] MEDS: cefTRIAXone/NS 1 GM/50 ML 1 GM/50 ML BAG IV SCH (09:29)
[2021-01-10] MEDS: DOXYCYCLINE 100 MG CAP PO SCH ×2 (09:29→21:48)
[2021-01-10] MEDS: FERROUS SULFATE 325 MG TAB PO SCH ×3 (09:29→20:29)
[2021-01-10] MEDS: MORPHINE 2 MG/1 ML INJ IV PRN (12:57)
--- NOTE | 2021-01-10 17:37 | Progress Note ---
Assessment and Plan Assessment and plan: 25-year-old -[place] female who presents to the emergency room acute bilateral thigh pain and lower abdominal wall pain after working out at the gym for 1 day. Patient denies any recent injury. Patient states that pain is worse when she tries to stand or walk, 10 out of 10 in severity. Patient denies any nausea vomiting or fevers. She was found to have rhabdomyolysis with total CK and started on normal saline infusion at 150 mL/h. creatinine normal. WBC normal. Last menstrual period was last month. She admits to minimal vaginal discharge. Boyfriend was recently diagnosed with chlamydia. CT scan and transvaginal US shows no TOA and GC/Chlm serology have been sent and are pending. She was given doxycyclin and rocephin in the ER. 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 LEAD PROCESS ENGINEER consulted and following. Assessment: Rhabdomyolysis with severe upper thigh and the lower abdominal wall pains. Initial total CK 27,505, progress improving today 12,100. Creatinine and electrolytes normal. AST today 170 possible from rhabdo Continue hydration with normal saline at 150 mL/h. No evidence of volume overload. Monitor for volume overload, renal function, liver enzymes and electrolytes Patient gives history of her boyfriend recently diagnosed with chlamydia Serology positive for chlamydia but negative for gonorrhea. Vaginal births smear positive for clue cells. Urine normal. Patient does not seem to have PID, she has lower abdominal wall pains from rhabdomyolysis Treating with Rocephin and doxycycline LEAD PROCESS ENGINEER consulted and following. Her regular CLINICAL TRIAL HEAD is at [facility] but no recent follow-ups due to Covid pandemic. Headache Patient with history of daily chronic migraine headaches with some nausea. Does not appear to be taking prophylactic medications. Anxiety Disposition: Will be discharged when CK drops to below 5000. Discussed with the patient in detail and the nursing staff History Interval history: Patient reports that she continues to have pain in the lower back, lower abdomen and thighs. Denies she has much vaginal discharge. No dysuria. Urine clear. Patient is receiving normal saline at 150 mils per hour. Patient has chronic headaches with some nausea and history of migraine. Gets headaches almost daily. Hospitalist Physical - Constitutional Vitals: Temp Pulse Resp BP Pulse Ox 98.9 F 68 20 112/76 100 01/10/21 11:21 01/10/21 11:21 01/10/21 11:21 01/10/21 11:21 01/10/21 11:21 General appearance: Present: mild distress (From pains.), other (Skinny body habitus) - EENT Eyes: Present: PERRL. Absent: scleral icterus ENT: clear oral mucosa - Neck Neck: Present: supple - Respiratory Respiratory effort: normal Respiratory: bilateral: CTA - Cardiovascular Rhythm: regular - Extremities Extremities: No edema Extremity abnormal: other (Tenderness in upper thighs to palpation without skin lesions.) - Abdominal General gastrointestinal: normal bowel sounds, other (Some lower abdominal wall tenderness to palpation.) - Integumentary Integumentary: Absent: rash - Psychiatric Psychiatric: other (Anxious) - Neurologic Neurologic: no focal deficits Results - Labs CBC & Chem 7: 01/10/21 05:40 01/10/21 05:40 Labs: Laboratory Last Values WBC 4.1 K/mm3 (4.5-11.0) L 01/10/21 05:40 RBC 3.96 M/mm3 (3.65-5.03) 01/10/21 05:40 Hgb 9.8 gm/dl (10.1-14.3) L 01/10/21 05:40 Hct 31.1 % (30.3-42.9) 01/10/21 05:40 MCV 79 fl (79-97) 01/10/21 05:40 MCH 25 pg (28-32) L 01/10/21 05:40 MCHC 31 % (30-34) 01/10/21 05:40 RDW 15.8 % (13.2-15.2) H 01/10/21 05:40 Plt Count 236 K/mm3 (140-440) 01/10/21 05:40 Lymph % (Auto) 50.1 % (13.4-35.0) H 01/10/21 05:40 [place] % (Auto) 8.1 % (0.0-7.3) H 01/10/21 05:40 Eos % (Auto) 1.3 % (0.0-4.3) 01/10/21 05:40 Baso % (Auto) 0.3 % (0.0-1.8) 01/10/21 05:40 Lymph # (Auto) 2.1 K/mm3 (1.2-5.4) 01/10/21 05:40 [place] # (Auto) 0.3 K/mm3 (0.0-0.8) 01/10/21 05:40 Eos # (Auto) 0.1 K/mm3 (0.0-0.4) 01/10/21 05:40 Baso # (Auto) 0.0 K/mm3 (0.0-0.1) 01/10/21 05:40 Seg Neutrophils % 40.2 % (40.0-70.0) 01/10/21 05:40 Seg Neutrophils # 1.7 K/mm3 (1.8-7.7) L 01/10/21 05:40 Sodium 141 mmol/L (137-145) 01/10/21 05:40 Potassium 3.7 mmol/L (3.6-5.0) 01/10/21 05:40 Chloride 108.9 mmol/L (98-107) H 01/10/21 05:40 Carbon Dioxide 24 mmol/L (22-30) 01/10/21 05:40 Anion Gap 12 mmol/L 01/10/21 05:40 BUN 5 mg/dL (7-17) L 01/10/21 05:40 Creatinine 0.7 mg/dL (0.6-1.2) 01/10/21 05:40 Estimated GFR > 60 ml/min 01/10/21 05:40 BUN/Creatinine Ratio 7 % 01/10/21 05:40 Glucose 77 mg/dL (65-100) 01/10/21 05:40 Calcium 8.6 mg/dL (8.4-10.2) 01/10/21 05:40 Total Bilirubin < 0.20 mg/dL (0.1-1.2) 01/10/21 05:40 AST 130 units/L (5-40) H 01/10/21 05:40 ALT 45 units/L (7-56) 01/10/21 05:40 Alkaline Phosphatase 47 units/L (35-129) 01/10/21 05:40 Total Creatine Kinase 23442 units/L (30-135) H 01/10/21 05:40 Total Protein 6.0 g/dL (6.3-8.2) L 01/10/21 05:40 Albumin 3.7 g/dL (3.9-5) L 01/10/21 05:40 Albumin/Globulin Ratio 1.6 % 01/10/21 05:40 Urine Color Yellow (Yellow) 01/07/21 Unknown Urine Turbidity Clear (Clear) 01/07/21 Unknown Urine pH 5.0 (5.0-7.0) 01/07/21 Unknown Ur Specific [place] 1.024 (1.003-1.030) 01/07/21 Unknown Urine Protein 30 mg/dl mg/dL (Negative) 01/07/21 Unknown Urine Glucose (UA) Neg mg/dL (Negative) 01/07/21 Unknown Urine Ketones Neg mg/dL (Negative) 01/07/21 Unknown Urine Blood Sm (Negative) 01/07/21 Unknown Urine Nitrite Neg (Negative) 01/07/21 Unknown Urine Bilirubin Neg (Negative) 01/07/21 Unknown Urine Urobilinogen 2.0 mg/dL (<2.0) 01/07/21 Unknown Ur Leukocyte Esterase Neg (Negative) 01/07/21 Unknown Urine WBC (Auto) 3.0 /HPF (0.0-6.0) 01/07/21 Unknown Urine RBC (Auto) 2.0 /HPF (0.0-6.0) 01/07/21 Unknown U Epithel Cells (Auto) 2.0 /HPF (0-13.0) 01/07/21 Unknown Urine Mucus 3+ /HPF 01/07/21 Unknown Urine HCG, Qual Negative (Negative) 01/07/21 Unknown C.trachomatis DNA (SDA) Detected (Not Detected) H 01/07/21 08:26 N.gonorrhoeae DNA (SDA) Not detected (Not Detected) 01/07/21 08:26 Thomas/IV: Voiding Method Toilet Active Medications - Current Medications Current Medications: Generic Name Dose Route Start Last Admin Trade Name Freq PRN Reason Stop Dose Admin Doxycycline Hyclate 100 mg 01/08/21 10:00 01/10/21 09:29 Doxycycline 100 Mg Cap PO 100 mg BID OSEI Administration Protocol Ferrous Sulfate 325 mg 01/07/21 14:00 01/10/21 13:00 Ferrous Sulfate 325 Mg Tab PO 325 mg TID OSEI Administration Sodium Chloride 1,000 mls @ 150 mls/hr 01/07/21 11:30 01/09/21 22:04 Nacl 0.9% 1000 Ml IV 150 mls/hr DIRECT OSEI Administration Ceftriaxone Sodium 1 gm in 50 mls @ 100 mls/hr 01/08/21 10:00 01/10/21 09:29 Rocephin/Ns 1 Gm/50 Ml IV 100 mls/hr Q24H OSEI Administration Protocol Morphine Sulfate 2 mg 01/07/21 16:27 01/10/21 12:57 Morphine 2 Mg/1 Ml Inj IV 2 mg Q4H PRN Administration Pain , Severe (7-10) Ondansetron HCl 4 mg 01/09/21 16:00 01/09/21 18:20 Ondansetron 4 Mg Odt Tab PO 4 mg Q6HR PRN Administration Nausea Oxycodone/Acetaminophen 1 tab 01/07/21 12:00 01/10/21 05:47 Oxycodone /Acetaminophen 5-325mg Tab PO 1 tab Q6HR PRN Administration PAIN
[2021-01-10] MEDS: SODIUM CHLORIDE 0.9% 1000 ML 1,000 ML IV SCH (20:29)
[2021-01-11] MEDS: MORPHINE 2 MG/1 ML INJ IV PRN (00:48)
[2021-01-11] MEDS: SODIUM CHLORIDE 0.9% 1000 ML 1,000 ML IV SCH ×3 (05:24→18:59)
[2021-01-11 06:22] LABS: Basophils % (Auto) 0.6 % (0.0-1.8); Eosinophils # (Auto) 0.1 K/mm3 (0.0-0.4); Eosinophils % (Auto) 1.4 % (0.0-4.3); Hematocrit 29.6 % (30.3-42.9); Hemoglobin 9.6 gm/dl (10.1-14.3); Lymphocytes # (Auto) 2.1 K/mm3 (1.2-5.4); Lymphocytes % (Auto) 54.3 % (13.4-35.0); Mean Corpuscular HGB Conc 32 % (30-34); Mean Corpuscular Volume 79 fl (79-97); Monocytes # (Auto) 0.3 K/mm3 (0.0-0.8); Monocytes % (Auto) 8.3 % (0.0-7.3); Platelet Count 219 K/mm3 (140-440); Red Blood Count 3.75 M/mm3 (3.65-5.03); Red Cell Distribution Width 16.1 % (13.2-15.2)
[2021-01-11 06:40] LABS: Alanine Aminotransferase 38 units/L (7-56); Albumin 3.8 g/dL (3.9-5); Blood Urea Nitrogen 4 mg/dL (7-17); Calcium 8.9 mg/dL (8.4-10.2); Hemolysis Index 4
[2021-01-11 06:42] LABS: BUN/Creatinine Ratio 7
[2021-01-11] MEDS: FERROUS SULFATE 325 MG TAB PO SCH ×3 (09:44→20:33)
[2021-01-11] MEDS: DOXYCYCLINE 100 MG CAP PO SCH ×2 (09:44→21:02)
[2021-01-11] MEDS: cefTRIAXone/NS 1 GM/50 ML 1 GM/50 ML BAG IV SCH (09:45)
[2021-01-11] MEDS: oxyCODONE /ACETAMINOPHEN 5-325MG TAB PO PRN (12:21)
--- NOTE | 2021-01-11 12:45 | Progress Note ---
Assessment and Plan Assessment and plan: 25-year-old -Yemeni female who presents to the emergency room acute bilateral thigh pain and lower abdominal wall pain after working out at the gym for 1 day. Patient denies any recent injury. Patient states that pain is worse when she tries to stand or walk, 10 out of 10 in severity. Patient denies any nausea vomiting or fevers. She was found to have rhabdomyolysis with total CK and started on normal saline infusion at 150 mL/h. creatinine normal. WBC normal. Last menstrual period was last month. She admits to minimal vaginal discharge. Boyfriend was recently diagnosed with chlamydia. CT scan and transvaginal US shows no TOA and GC/Chlm serology have been sent and are pending. She was given doxycyclin and rocephin in the ER. 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 MATERIALS TECHNICIAN consulted and following. Assessment: Rhabdomyolysis with severe upper thigh and the lower abdominal wall pains. Initial total CK 27,505, progress improving today 8109. Creatinine and electrolytes normal. AST elevation, likely from from rhabdo, improving Continue hydration with normal saline at 150 mL/h. No evidence of volume overload. Monitor for volume overload, renal function, liver enzymes and electrolytes Patient gives history of her boyfriend recently diagnosed with chlamydia Serology positive for chlamydia but negative for gonorrhea. Vaginal births smear positive for clue cells. Urine normal. Patient does not seem to have PID, she has lower abdominal wall pains from rhabdomyolysis Treating with Rocephin and doxycycline MATERIALS TECHNICIAN consulted and following. 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 Headache Patient with history of daily chronic migraine headaches with some nausea. Does not appear to be taking prophylactic medications. Anxiety Disposition: Will be discharged when CK drops to below 5000. Discussed with the patient in detail and the nursing staff History Interval history: Patient reports that she continues to have pain in the lower back, lower abdomen and thighs. Denies she has much vaginal discharge. No dysuria. Urine clear. Patient is receiving normal saline at 150 mils per hour and tolerating it. Patient has chronic headaches with some nausea and history of migraine. Gets headaches almost daily. Patient is drowsy likely from narcotics. Hospitalist Physical - Constitutional Vitals: Temp Pulse Resp BP Pulse Ox 98.3 F 70 17 106/65 99 01/10/21 21:03 01/10/21 21:03 01/11/21 01:18 01/10/21 21:03 01/10/21 21:03 General appearance: Present: no acute distress, other (Skinny body habitus, sleepy/drowsy) - EENT Eyes: Present: PERRL, EOM intact ENT: hearing intact, clear oral mucosa - Neck Neck: Present: supple - Respiratory Respiratory effort: normal Respiratory: bilateral: CTA - Cardiovascular Rhythm: regular Heart Sounds: Absent: systolic murmur - Extremities Extremities: No edema Extremity abnormal: other (Soreness and tightness with palpation. No bruising, stiffness or edema.) - Abdominal General gastrointestinal: soft, non-tender, non-distended, normal bowel sounds - Integumentary Integumentary: Absent: rash - Psychiatric Psychiatric: appropriate mood/affect - Neurologic Neurologic: no focal deficits HEART Score - HEART Score Troponin: Troponin T < 0.010 ng/mL (0.00-0.029) 01/11/21 10:39 Results - Labs CBC & Chem 7: 01/11/21 04:47 01/11/21 04:47 Labs: Laboratory Last Values WBC 3.8 K/mm3 (4.5-11.0) L 01/11/21 04:47 RBC 3.75 M/mm3 (3.65-5.03) 01/11/21 04:47 Hgb 9.6 gm/dl (10.1-14.3) L 01/11/21 04:47 Hct 29.6 % (30.3-42.9) L 01/11/21 04:47 MCV 79 fl (79-97) 01/11/21 04:47 MCH 26 pg (28-32) L 01/11/21 04:47 MCHC 32 % (30-34) 01/11/21 04:47 RDW 16.1 % (13.2-15.2) H 01/11/21 04:47 Plt Count 219 K/mm3 (140-440) 01/11/21 04:47 Lymph % (Auto) 54.3 % (13.4-35.0) H 01/11/21 04:47 [place] % (Auto) 8.3 % (0.0-7.3) H 01/11/21 04:47 Eos % (Auto) 1.4 % (0.0-4.3) 01/11/21 04:47 Baso % (Auto) 0.6 % (0.0-1.8) 01/11/21 04:47 Lymph # (Auto) 2.1 K/mm3 (1.2-5.4) 01/11/21 04:47 [place] # (Auto) 0.3 K/mm3 (0.0-0.8) 01/11/21 04:47 Eos # (Auto) 0.1 K/mm3 (0.0-0.4) 01/11/21 04:47 Baso # (Auto) 0.0 K/mm3 (0.0-0.1) 01/11/21 04:47 Seg Neutrophils % 35.4 % (40.0-70.0) L 01/11/21 04:47 Seg Neutrophils # 1.3 K/mm3 (1.8-7.7) L 01/11/21 04:47 Sodium 142 mmol/L (137-145) 01/11/21 04:47 Potassium 3.6 mmol/L (3.6-5.0) 01/11/21 04:47 Chloride 108.0 mmol/L (98-107) H 01/11/21 04:47 Carbon Dioxide 28 mmol/L (22-30) 01/11/21 04:47 Anion Gap 10 mmol/L 01/11/21 04:47 BUN 4 mg/dL (7-17) L 01/11/21 04:47 Creatinine 0.6 mg/dL (0.6-1.2) 01/11/21 04:47 Estimated GFR > 60 ml/min 01/11/21 04:47 BUN/Creatinine Ratio 7 % 01/11/21 04:47 Glucose 79 mg/dL (65-100) 01/11/21 04:47 Calcium 8.9 mg/dL (8.4-10.2) 01/11/21 04:47 Magnesium 1.80 mg/dL (1.7-2.3) 01/11/21 04:47 Total Bilirubin < 0.20 mg/dL (0.1-1.2) 01/11/21 04:47 AST 97 units/L (5-40) H 01/11/21 04:47 ALT 38 units/L (7-56) 01/11/21 04:47 Alkaline Phosphatase 45 units/L (35-129) 01/11/21 04:47 Total Creatine Kinase 8109 units/L (30-135) H 01/11/21 04:47 Troponin T < 0.010 ng/mL (0.00-0.029) 01/11/21 10:39 Total Protein 5.8 g/dL (6.3-8.2) L 01/11/21 04:47 Albumin 3.8 g/dL (3.9-5) L 01/11/21 04:47 Albumin/Globulin Ratio 1.9 % 01/11/21 04:47 Urine Color Yellow (Yellow) 01/07/21 Unknown Urine Turbidity Clear (Clear) 01/07/21 Unknown Urine pH 5.0 (5.0-7.0) 01/07/21 Unknown Ur Specific [place] 1.024 (1.003-1.030) 01/07/21 Unknown Urine Protein 30 mg/dl mg/dL (Negative) 01/07/21 Unknown Urine Glucose (UA) Neg mg/dL (Negative) 01/07/21 Unknown Urine Ketones Neg mg/dL (Negative) 01/07/21 Unknown Urine Blood Sm (Negative) 01/07/21 Unknown Urine Nitrite Neg (Negative) 01/07/21 Unknown Urine Bilirubin Neg (Negative) 01/07/21 Unknown Urine Urobilinogen 2.0 mg/dL (<2.0) 01/07/21 Unknown Ur Leukocyte Esterase Neg (Negative) 01/07/21 Unknown Urine WBC (Auto) 3.0 /HPF (0.0-6.0) 01/07/21 Unknown Urine RBC (Auto) 2.0 /HPF (0.0-6.0) 01/07/21 Unknown U Epithel Cells (Auto) 2.0 /HPF (0-13.0) 01/07/21 Unknown Urine Mucus 3+ /HPF 01/07/21 Unknown Urine HCG, Qual Negative (Negative) 01/07/21 Unknown C.trachomatis DNA (SDA) Detected (Not Detected) H 01/07/21 08:26 N.gonorrhoeae DNA (SDA) Not detected (Not Detected) 01/07/21 08:26 Thomas/IV: Voiding Method Toilet Active Medications - Current Medications Current Medications: Generic Name Dose Route Start Last Admin Trade Name Freq PRN Reason Stop Dose Admin Doxycycline Hyclate 100 mg 01/08/21 10:00 01/11/21 09:44 Doxycycline 100 Mg Cap PO 100 mg BID OSEI Administration Protocol Ferrous Sulfate 325 mg 01/07/21 14:00 01/11/21 09:44 Ferrous Sulfate 325 Mg Tab PO 325 mg TID OSEI Administration Sodium Chloride 1,000 mls @ 150 mls/hr 01/07/21 11:30 01/11/21 12:22 Nacl 0.9% 1000 Ml IV 150 mls/hr DIRECT OSEI Administration Ceftriaxone Sodium 1 gm in 50 mls @ 100 mls/hr 01/08/21 10:00 01/11/21 09:45 Rocephin/Ns 1 Gm/50 Ml IV 100 mls/hr Q24H OSEI Administration Protocol Morphine Sulfate 2 mg 01/07/21 16:27 01/11/21 00:48 Morphine 2 Mg/1 Ml Inj IV 2 mg Q4H PRN Administration Pain , Severe (7-10) Ondansetron HCl 4 mg 01/09/21 16:00 01/09/21 18:20 Ondansetron 4 Mg Odt Tab PO 4 mg Q6HR PRN Administration Nausea Oxycodone/Acetaminophen 1 tab 01/07/21 12:00 01/11/21 12:21 Oxycodone /Acetaminophen 5-325mg Tab PO 1 tab Q6HR PRN Administration PAIN
[2021-01-11] MEDS ORDERED: SUMAtriptan SUCCINATE 50 MG TAB PO PRN (12:50)
[2021-01-11] MEDS ORDERED: POTASSIUM CHLORIDE ER 20 MEQ TAB PO ONE (13:37)
[2021-01-11] MEDS: HYDROcodone/ACETAMINOPHEN 7.5-325MG TAB PO PRN (20:39)
[2021-01-12] MEDS: SODIUM CHLORIDE 0.9% 1000 ML 1,000 ML IV SCH ×2 (01:20→07:11)
[2021-01-12] MEDS: HYDROcodone/ACETAMINOPHEN 7.5-325MG TAB PO PRN ×3 (01:36→20:42)
[2021-01-12 05:54] LABS: Eosinophils # (Auto) 0.1 K/mm3 (0.0-0.4); Eosinophils % (Auto) 1.3 % (0.0-4.3); Hematocrit 31.9 % (30.3-42.9); Hemoglobin 9.9 gm/dl (10.1-14.3); Lymphocytes # (Auto) 2.2 K/mm3 (1.2-5.4); Lymphocytes % (Auto) 47.6 % (13.4-35.0); Mean Corpuscular HGB Conc 31 % (30-34); Mean Corpuscular Volume 78 fl (79-97); Monocytes # (Auto) 0.4 K/mm3 (0.0-0.8); Platelet Count 270 K/mm3 (140-440); Red Blood Count 4.07 M/mm3 (3.65-5.03); Red Cell Distribution Width 16.3 % (13.2-15.2)
[2021-01-12 06:09] LABS: Alanine Aminotransferase 35 units/L (7-56); Albumin 3.7 g/dL (3.9-5); Blood Urea Nitrogen 5 mg/dL (7-17); Calcium 8.5 mg/dL (8.4-10.2); Hemolysis Index 6
[2021-01-12 06:11] LABS: BUN/Creatinine Ratio 8
[2021-01-12] MEDS: FERROUS SULFATE 325 MG TAB PO SCH ×3 (09:20→20:43)
[2021-01-12] MEDS: DOXYCYCLINE 100 MG CAP PO SCH ×2 (09:20→21:13)
[2021-01-12] MEDS: cefTRIAXone/NS 1 GM/50 ML 1 GM/50 ML BAG IV SCH (09:20)
--- NOTE | 2021-01-12 19:49 | Progress Note ---
Assessment and Plan Assessment and plan: 25-year-old -[place] female who presents to the emergency room acute bilateral thigh pain and lower abdominal wall pain after working out at the gym for 1 day. Patient denies any recent injury. Patient states that pain is worse when she tries to stand or walk, 10 out of 10 in severity. Patient denies any nausea vomiting or fevers. She was found to have rhabdomyolysis with total CK and started on normal saline infusion at 150 mL/h. creatinine normal. WBC normal. Last menstrual period was last month. She admits to minimal vaginal discharge. Boyfriend was recently diagnosed with chlamydia. CT scan and transvaginal US shows no TOA and GC/Chlm serology have been sent and are pending. She was given doxycyclin and rocephin in the ER. 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 BILLBOARD INSTALLER consulted and following. Assessment: Rhabdomyolysis with severe upper thigh and the lower abdominal wall pains. Initial total CK 27,505, progressively improving today 5073, possible discharge tomorrow Creatinine and electrolytes normal. AST elevation, likely from from rhabdo, improving Continue hydration with normal saline at 150 mL/h. No evidence of volume overload. Monitor for volume overload, renal function, liver enzymes and electrolytes Patient gives history of her boyfriend recently diagnosed with chlamydia Serology positive for chlamydia but negative for gonorrhea. Vaginal births smear positive for clue cells. Urine normal. Patient does not seem to have PID, she has lower abdominal wall pains from rhabdomyolysis Treating with Rocephin and doxycycline BILLBOARD INSTALLER consulted and following. 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 Headache Patient with history of daily chronic migraine headaches with some nausea. Does not appear to be taking prophylactic medications. Improved with Imitrex given a slip. Anxiety Drowsiness with narcotics Disposition: Likely discharge tomorrow with further improvement of rhabdomyolysis Discussed with the patient in detail and the nursing staff History Interval history: Patient reports that she continues to have some pain in the lower back, lower abdomen and thighs. Denies she has much vaginal discharge. No dysuria. Urine clear. Patient is receiving normal saline at 150 mils per hour and tolerating it. Patient has chronic headaches with some nausea and history of migraine, improved with Imitrex given yesterday. Gets headaches almost daily. Patient is drowsy likely from narcotics. Hospitalist Physical - Constitutional Vitals: Temp Pulse Resp BP Pulse Ox 98.6 F 74 19 120/76 100 01/12/21 11:30 01/12/21 11:31 01/12/21 11:30 01/12/21 11:30 01/12/21 11:31 General appearance: Present: no acute distress, other (Skinny body habitus, sleepy/drowsy) - EENT Eyes: Present: PERRL, EOM intact ENT: clear oral mucosa - Neck Neck: Present: supple - Respiratory Respiratory effort: normal Respiratory: bilateral: CTA - Cardiovascular Rhythm: regular - Extremities Extremities: No edema Extremity abnormal: other (Thigh muscle soft to palpation.) - Abdominal General gastrointestinal: soft, non-tender, non-distended, normal bowel sounds - Integumentary Integumentary: Absent: rash - Psychiatric Psychiatric: appropriate mood/affect - Neurologic Neurologic: no focal deficits HEART Score - HEART Score Troponin: Troponin T < 0.010 ng/mL (0.00-0.029) 01/11/21 17:30 Results - Labs CBC & Chem 7: 01/12/21 04:42 01/12/21 04:42 Labs: Laboratory Last Values WBC 4.7 K/mm3 (4.5-11.0) 01/12/21 04:42 RBC 4.07 M/mm3 (3.65-5.03) 01/12/21 04:42 Hgb 9.9 gm/dl (10.1-14.3) L 01/12/21 04:42 Hct 31.9 % (30.3-42.9) 01/12/21 04:42 MCV 78 fl (79-97) L 01/12/21 04:42 MCH 24 pg (28-32) L 01/12/21 04:42 MCHC 31 % (30-34) 01/12/21 04:42 RDW 16.3 % (13.2-15.2) H 01/12/21 04:42 Plt Count 270 K/mm3 (140-440) 01/12/21 04:42 Lymph % (Auto) 47.6 % (13.4-35.0) H 01/12/21 04:42 [place] % (Auto) 9.0 % (0.0-7.3) H 01/12/21 04:42 Eos % (Auto) 1.3 % (0.0-4.3) 01/12/21 04:42 Baso % (Auto) 1.0 % (0.0-1.8) 01/12/21 04:42 Lymph # (Auto) 2.2 K/mm3 (1.2-5.4) 01/12/21 04:42 [place] # (Auto) 0.4 K/mm3 (0.0-0.8) 01/12/21 04:42 Eos # (Auto) 0.1 K/mm3 (0.0-0.4) 01/12/21 04:42 Baso # (Auto) 0.0 K/mm3 (0.0-0.1) 01/12/21 04:42 Seg Neutrophils % 41.1 % (40.0-70.0) 01/12/21 04:42 Seg Neutrophils # 1.9 K/mm3 (1.8-7.7) 01/12/21 04:42 Sodium 142 mmol/L (137-145) 01/12/21 04:42 Potassium 3.9 mmol/L (3.6-5.0) 01/12/21 04:42 Chloride 110.3 mmol/L (98-107) H 01/12/21 04:42 Carbon Dioxide 23 mmol/L (22-30) 01/12/21 04:42 Anion Gap 13 mmol/L 01/12/21 04:42 BUN 5 mg/dL (7-17) L 01/12/21 04:42 Creatinine 0.6 mg/dL (0.6-1.2) 01/12/21 04:42 Estimated GFR > 60 ml/min 01/12/21 04:42 BUN/Creatinine Ratio 8 % 01/12/21 04:42 Glucose 77 mg/dL (65-100) 01/12/21 04:42 Calcium 8.5 mg/dL (8.4-10.2) 01/12/21 04:42 Magnesium 1.80 mg/dL (1.7-2.3) 01/12/21 04:42 Total Bilirubin < 0.20 mg/dL (0.1-1.2) 01/12/21 04:42 AST 63 units/L (5-40) H 01/12/21 04:42 ALT 35 units/L (7-56) 01/12/21 04:42 Alkaline Phosphatase 48 units/L (35-129) 01/12/21 04:42 Total Creatine Kinase 4868 units/L (30-135) H 01/12/21 16:13 Troponin T < 0.010 ng/mL (0.00-0.029) 01/11/21 17:30 Total Protein 6.1 g/dL (6.3-8.2) L 01/12/21 04:42 Albumin 3.7 g/dL (3.9-5) L 01/12/21 04:42 Albumin/Globulin Ratio 1.5 % 01/12/21 04:42 Urine Color Yellow (Yellow) 01/07/21 Unknown Urine Turbidity Clear (Clear) 01/07/21 Unknown Urine pH 5.0 (5.0-7.0) 01/07/21 Unknown Ur Specific [place] 1.024 (1.003-1.030) 01/07/21 Unknown Urine Protein 30 mg/dl mg/dL (Negative) 01/07/21 Unknown Urine Glucose (UA) Neg mg/dL (Negative) 01/07/21 Unknown Urine Ketones Neg mg/dL (Negative) 01/07/21 Unknown Urine Blood Sm (Negative) 01/07/21 Unknown Urine Nitrite Neg (Negative) 01/07/21 Unknown Urine Bilirubin Neg (Negative) 01/07/21 Unknown Urine Urobilinogen 2.0 mg/dL (<2.0) 01/07/21 Unknown Ur Leukocyte Esterase Neg (Negative) 01/07/21 Unknown Urine WBC (Auto) 3.0 /HPF (0.0-6.0) 01/07/21 Unknown Urine RBC (Auto) 2.0 /HPF (0.0-6.0) 01/07/21 Unknown U Epithel Cells (Auto) 2.0 /HPF (0-13.0) 01/07/21 Unknown Urine Mucus 3+ /HPF 01/07/21 Unknown Urine HCG, Qual Negative (Negative) 01/07/21 Unknown C.trachomatis DNA (SDA) Detected (Not Detected) H 01/07/21 08:26 N.gonorrhoeae DNA (SDA) Not detected (Not Detected) 01/07/21 08:26 Thomas/IV: Voiding Method Toilet Active Medications - Current Medications Current Medications: Generic Name Dose Route Start Last Admin Trade Name Freq PRN Reason Stop Dose Admin Hydrocodone Bitart/Acetaminophen 1 each 01/11/21 12:51 01/12/21 11:33 Hydrocodone/Acetaminophen 7.5-325mg Tab PO 1 each Q6H PRN Administration Pain, Moderate (4-6) Doxycycline Hyclate 100 mg 01/08/21 10:00 01/12/21 09:20 Doxycycline 100 Mg Cap PO 01/21/21 22:01 100 mg BID OSEI Administration Protocol Ferrous Sulfate 325 mg 01/07/21 14:00 01/12/21 13:51 Ferrous Sulfate 325 Mg Tab PO 325 mg TID OSEI Administration Sodium Chloride 1,000 mls @ 150 mls/hr 01/07/21 11:30 01/12/21 07:11 Nacl 0.9% 1000 Ml IV 150 mls/hr DIRECT OSEI Administration Ceftriaxone Sodium 1 gm in 50 mls @ 100 mls/hr 01/08/21 10:00 01/12/21 09:20 Rocephin/Ns 1 Gm/50 Ml IV 100 mls/hr Q24H OSEI Administration Protocol Ondansetron HCl 4 mg 01/09/21 16:00 01/09/21 18:20 Ondansetron 4 Mg Odt Tab PO 4 mg Q6HR PRN Administration Nausea Sumatriptan Succinate 50 mg 01/11/21 12:50 Sumatriptan Succinate 50 Mg Tab PO Q2H PRN Headache Nutrition/Malnutrition Assess - Dietary Evaluation Nutrition/Malnutrition Findings: Nutrition Notes Start: 01/12/21 10:54 Freq: Status: Active Protocol: Document 01/12/21 10:54 YRN (Rec: 01/12/21 10:55 YRN [id number]) Nutrition Notes Need for Assessment generated from: Low BMI Initial or Follow up Brief Note Height 5 ft 6 in Weight 61.5 kg [place] Body Weight (kg) 59.09 BMI 21.9 Weight Status Appropriate Subjective/Other Information Pt screened for low BMI, however, admission entered incorrectly. Will assess upon further consult or LOS.
[2021-01-12 21:49] VITALS: BP 123/81
[2021-01-12] MEDS ORDERED: traZODone 50 MG TAB PO SCH (22:00)
[2021-01-13] MEDS: SODIUM CHLORIDE 0.9% 1000 ML 1,000 ML IV SCH ×2 (00:59→07:48)
[2021-01-13 05:56] LABS: Basophils % (Auto) 0.7 % (0.0-1.8); Eosinophils % (Auto) 1.2 % (0.0-4.3); Hematocrit 30.9 % (30.3-42.9); Lymphocytes # (Auto) 1.9 K/mm3 (1.2-5.4); Lymphocytes % (Auto) 44.9 % (13.4-35.0); Mean Corpuscular HGB Conc 32 % (30-34); Mean Corpuscular Volume 80 fl (79-97); Monocytes # (Auto) 0.5 K/mm3 (0.0-0.8); Monocytes % (Auto) 10.9 % (0.0-7.3); Platelet Count 236 K/mm3 (140-440); Red Blood Count 3.89 M/mm3 (3.65-5.03)
[2021-01-13 06:09] LABS: Alanine Aminotransferase 27 units/L (7-56); Albumin 3.6 g/dL (3.9-5); Blood Urea Nitrogen 7 mg/dL (7-17); Calcium 8.8 mg/dL (8.4-10.2); Hemolysis Index 1
[2021-01-13 06:12] LABS: BUN/Creatinine Ratio 12
--- NOTE | 2021-01-13 09:12 | Electrocardiograph Report ---
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
[2021-01-13] MEDS: FERROUS SULFATE 325 MG TAB PO SCH (09:19)
[2021-01-13] MEDS: DOXYCYCLINE 100 MG CAP PO SCH (09:43)
[2021-01-13] MEDS ORDERED: PROPRANOLOL 10 MG TAB PO SCH (10:00)
--- NOTE | 2021-01-13 10:52 | Discharge Summary ---
Providers - Providers Date of Admission: 01/07/21 11:38 Attending physician: JASWANT ANGELO MD 01/07/21 08:46 Consult to Physician [CONS] Urgent Comment: Consulting Provider: BERENICE ALEJANDRE Physician Instructions: Reason For Exam: Concern for PID Primary care physician: SYLWIA DODD Hospitalization Reason for admission: Thigh pain Condition: Stable Hospital course: 25-year-old -Citizen Of [place] female who presents to the emergency room acute bilateral thigh pain and lower abdominal wall pain after working out at the gym for 1 day. Patient denies any recent injury. Patient states that pain is worse when she tries to stand or walk, 10 out of 10 in severity. Patient denies any nausea vomiting or fevers. She was found to have rhabdomyolysis with total CK and started on normal saline infusion at 150 mL/h. creatinine normal. WBC normal. Last menstrual period was last month. She admits to minimal vaginal discharge. Boyfriend was recently diagnosed with chlamydia. CT scan and transvaginal US shows no TOA and GC/Chlm serology have been sent and are pending. She was given doxycyclin and rocephin in the ER. 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 PROCESS SAFETY MANAGER consulted and following. Rhabdomyolysis with severe upper thigh and the lower abdominal wall pains. Initial total CK 27,505, progressively improving today [id number], possible discharge tomorrow Creatinine and electrolytes normal. AST elevation, likely from from rhabdo, improving Continue hydration with normal saline at 150 mL/h. No evidence of volume overload. Monitor for volume overload, renal function, liver enzymes and electrolytes Patient gives history of her boyfriend recently diagnosed with chlamydia Serology positive for chlamydia but negative for gonorrhea. Vaginal births smear positive for clue cells. Urine normal. Patient does not seem to have PID, she has lower abdominal wall pains from rhabdomyolysis Treating with Rocephin and doxycycline PROCESS SAFETY MANAGER consulted and following. 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 Headache Patient with history of daily chronic migraine headaches with some nausea. Does not appear to be taking prophylactic medications. Improved with Imitrex given a slip. Anxiety Drowsiness with narcotics Disposition: Likely discharge tomorrow with further improvement of rhabdomyolysis Discussed with the patient in detail and the nursing staff 01/13: Patient seen and examined, No further pain, she is awake, alert, oriented. No new complaints. Recommended to follow with PCP for the daily headache. Encouraged to stay hydrated Follow with PARTS RUNNER Avoid Energy drinks Disposition: DC-01 TO HOME OR SELFCARE Final Discharge Diagnosis (Prints w/discharge instructions): Rhabdomyolysis with severe upper thigh and the lower abdominal wall pains Time spent for discharge: 35 mins Core Measure Documentation - Palliative Care Palliative Care/ Comfort Measures: Not Applicable - Core Measures Any of the following diagnoses?: none Exam - Physical Exam Narrative exam: General appearance: Present: no acute distress, other (Skinny body habitus) - EENT Eyes: Present: PERRL, EOM intact ENT: clear oral mucosa - Neck Neck: Present: supple - Respiratory Respiratory effort: normal Respiratory: bilateral: CTA - Cardiovascular Rhythm: regular - Extremities Extremities: No edema - Abdominal General gastrointestinal: soft, non-tender, non-distended, normal bowel sounds - Integumentary Integumentary: Absent: rash - Psychiatric Psychiatric: appropriate mood/affect - Neurologic Neurologic: no focal deficits - Constitutional Vitals: Temp Pulse Resp BP Pulse Ox 97.5 F L 75 16 123/81 98 01/12/21 20:59 01/13/21 09:19 01/12/21 22:00 01/12/21 20:59 01/12/21 20:59 Plan Activity: advance as tolerated, fall precautions Diet: low fat Special Instructions: record daily weights, record daily BP diary Plan of Treatment: Encouraged to stay hydrated Follow with PARTS RUNNER Avoid Energy drinks Repeat CPK with Primary doctor in 3-4 days Follow up with: PRIMARY MD GERSON [Referring] - 3-5 Days BERENICE ALEJANDRE MD [Staff Physician] - 7 Days Prescriptions: DOXYCYCLINE Hyclate [Vibramycin CAP] 100 mg PO BID #28 tab
== END 2021-01-13 12:40 | disposition home or self-care (01) | DRG 558 ==
LOC: ED 00:22 → 3A 11:38
PROVIDERS: ADMIT Internal Medicine; ATTEND Internal Medicine
DX: M62.82 Rhabdomyolysis (principal); A74.9 Chlamydial infection, unspecified; E87.6 Hypokalemia; M79.652 Pain in left thigh; M79.651 Pain in right thigh; F41.9 Anxiety disorder, unspecified; G43.909 Migraine, unspecified, not intractable, without status migrainosus
CPT/HCPCS: 36415; 74177; 76830; 80048; 80053; 81001; 81025; 82550; 83735; 84484; 85025; 87210; 87591; 93005; 93975; 96365; 96366; 96367; G0378; J0696; J2270; J7030; J7050; J7120; Q0162; Q9967